=== PATIENT | male | born 1940 | race Caucasian/White ===

== ENCOUNTER 2018-11-20 23:23 | Inpatient (IN) | payer MEDICARE, OTHER ==
[~2018-11-20] VITALS: Ht 182.9 cm; Wt 84.1 kg
[2018-11-20] MEDS ORDERED: ASPIRIN325 MG PO (23:31)
[2018-11-20] MEDS ORDERED: MAXIPIME 1 GM/D51 G1 IV (23:31)
[2018-11-20] MEDS ORDERED: LEVEMIR IN100 UNITS/ SC (23:32)
[2018-11-20] MEDS ORDERED: FUROSEMIDE20 MG PO (23:32)
[2018-11-20] MEDS ORDERED: COLACE100 MG PO (23:32)
[2018-11-20] MEDS ORDERED: POLY-VI-SOL W/I50 ML (23:32)
[2018-11-20] MEDS ORDERED: ZOCOR40 MG PO (23:33)
[2018-11-20] MEDS ORDERED: NIFEDIPINE ER60 MG PO (23:33)
--- NOTE | 2018-11-20 23:33 | NUR ---
PT HAS A PICC LINE INPLACE TO RIGHT UPPER ARM, AND INDWELLING PORTILLO INPLACED DRAINING CLEAR YELLOW URINE. PT HAS D5W WITH 100 MEQ OF SODIUM BICARB INFUSING TO LEFT ARM
[2018-11-20] MEDS ORDERED: ZYVOX PREMIX600 MG IV (23:34)
[2018-11-20] MEDS ORDERED: LOPRESSOR25 MG PO (23:34)
[2018-11-20] MEDS ORDERED: SODIUM CL 0.91000 ML IV (23:35)
[2018-11-20] MEDS ORDERED: GEODON20 MG PO (23:35)
[2018-11-20 23:59] VITALS: BP 187/87
[2018-11-21] VITALS (25 sets, daily range): BP systolic 122–187; BP diastolic 76–109; BMI 29.9; BMI 29.8
[2018-11-21 00:14] LABS: BASOPHILS 0.8 % (0-2); EOSINOPHILS 1.8 % (0-7); HEMATOCRIT 32.6 % (42.0-54.0); IMMATURE GRANULOCYTES 0.4 % (0-5); LYMPHOCYTES 5.8 % (15-50); MCH 27.4 pg (26.0-34.0); MCHC 33.7 g/dL (31.0-37.0); MCV 81.3 fL (80.0-100.0); MEAN PLATELET VOLUME 10.1 fL (7.4-10.4); NEUTROPHILS 80.2 % (40-80); PLATELET COUNT 317 10x3/uL (130-400); RBC 4.01 10x6/uL (4.20-6.10); RDW 13.2 % (11.5-14.5)
[2018-11-21 00:23] LABS: ALBUMIN 2.4 g/dL (3.4-5.0); ANION GAP 26.7 mmol/L (8-16); BILIRUBIN - TOTAL 0.33 mg/dL (0.2-1.3); CALCIUM 8.4 mg/dL (8.5-10.1); CARBON DIOXIDE 12.5 mmol/L (21.0-32.0); CREATININE - SERUM 7.7 mg/dL (0.6-1.3); POTASSIUM - SERUM 5.2 mmol/L (3.5-5.1); PROTEIN - SERUM 7.5 g/dL (6.4-8.2)
[2018-11-21 00:29] LABS: C-REACTIVE PROTEIN 6.3 mg/dL (0.0-0.9); MAGNESIUM - SERUM 1.8 mg/dL (1.8-2.4)
--- NOTE | 2018-11-21 03:20 | NUR ---
PT ARRIVES TO UNIT FROM ER VIA STRETCHER WITH ER NURSE. PT TRANSFERRED TO ICU BED WITH ASSIST OF 4 NURSES AT 0145. ASSESSMENT COMPLETED, HX RECEIVED FROM DAUGHTER. PT NOTED WITH RASH TO BACK AND LEGS. GROIN AND BUTTOCKS REDDENED. PORTILLO PATENT WITH YELLOW URINE. PT LETHARGIC. PT FIDGETS FREQUENTLY WITH LESSENING OF FREQUENCY SINCE ARRIVING TO UNIT. PICC TO RIGHT UPPER ARM. LEFT FOREARM IV. HR DOWN FROM 117 UPON ARRIVAL TO 88 AT THIS TIME. BLOOD PRESSURE CUFF TO LEFT UPPER ARM WITH B/P 170'S / 100-108 CUFF MOVED TO RIGHT LOWER LEG WITH 172/80, NOTED AT THIS TIME. PT ARRIVED ON ROOM AIR AT 0300 SPO2 BEGAN DROPPING WITH N/C AT 2LPM AND SPO2 95%. WILL CONTINUE TO OBSERVE
--- NOTE | 2018-11-21 03:57 | NUR ---
CALLED ER TO CHECK WITH STAFF ABOUT CONTACTING PHYSICIAN CONSULTS. DR. THOMPSON HAS BEEN CONTACTED ABOUT CONSULT FROM ER PHYSICIAN. ER PHYSICIAN STATED TO WAIT TILL AM TO CALL OTHER CONSULTS FOR PATIENT.
--- NOTE | 2018-11-21 04:58 | NUR ---
PATIENT RESTLESS MOVING ABOUT IN BED. PATIENT DOES NOT FOLLOW ANY COMMANDS AND DOES NOT OPEN EYES. RUBBING FACE AND REMOVING O2 CANNULA ALONG WITH SPO2 MONITOR.
--- NOTE | 2018-11-21 07:00 | NUR ---
REPORT RECEIVED. ASSESSMENT COMPMLETE PER FLOW SHEET. REFER FOR FIDNINGS. DR MOCTEZUMA AT BEDSIDE GIVEN UPDATE NEW ORDERS RECIEVED. WILL ADM. VSS WILL CONTINUE TO MONITOR
--- NOTE | 2018-11-21 07:56 | NUR ---
DR RODRIGUEZ AT BEDSIDE GIVEN UDPATE.
--- NOTE | 2018-11-21 08:28 | NUR ---
FAMILY AT BEDSIDE. GIVEN UDPATE.
--- NOTE | 2018-11-21 09:19 | NUR ---
PT BACK FROM CT AT THIS TIME.
--- NOTE | 2018-11-21 09:40 | NUR ---
DIONY LEAL APN AT BEDSIDE. GIVENUDPATE. DR THIBODEAUX AT BEDSIDE. GIVEN UPDATE REGUARDING CONSULT. NO NEW CHANGES
[2018-11-21 10:33] LABS: CREATINE KINASE 59 UL (21-232); URIC ACID 9.5 mg/dL (2.6-7.2)
[2018-11-21 10:35] LABS: TROPONIN-I < 0.017 ng/mL (0.000-0.060)
[2018-11-21 13:39] LABS: APPEARANCE CLEAR (CLEAR); COLOR STRAW (YELLOW); NITRITE NEGATIVE (NEGATIVE); PROTEIN TRACE mg/dL (NEGATIVE); SPECIFIC GRAVITY 1.015 (1.005-1.020)
[2018-11-21 13:40] LABS: BILIRUBIN NEGATIVE (NEGATIVE); GLUCOSE 250 mg/dL (NEGATIVE); KETONE NEGATIVE (NEGATIVE); RED CELLS - URINE 0-5 /hpf (0-5); UROBILINOGEN NORMAL (NORMAL); WHITE CELLS - URINE NSEEN /hpf (0-5)
--- NOTE | 2018-11-21 15:11 | NUR ---
REASSESSMENT COMPLETE PER FLOW SHEET. VSS. NO NEW CHANGES WILL CONTNIUE TO MONITOR
--- NOTE | 2018-11-21 17:10 | NUR ---
FAMILY AT BEDSIDE. GIVEN UDPATE.
--- NOTE | 2018-11-21 17:14 | MORECARE ---
CASE MANAGEMENT DISCHARGE SUMMARY PATIENT: AFSHIN NORIEGA UNIT: [id number] ADM DATE: 11/21/18 AGE: 78 : 39 SEX: M ROOM/BED: D.2303 AUTHOR: VINAY WITT PHYSICIAN: REFERRING PHYSICIAN: DEEDEE RODRIGUEZ DO DATE OF SERVICE: 11/21/18 Discharge Plan Patient Name: AFSHIN NORIEGA [facility] [facility] 1940 Planned Disposition: Anticipated Discharge Date: Discharge Date: Expected LOS: Initial Reviewer: [email or web address] Initial Review Date: 11/21/2018 Generated: 11/21/18 6:14 pm Patient Name: AFSHIN NORIEGA Page 15054 at 1714 All edits/amendments must be made on the electronic document DICTATION DATE: 11/21/181713 DIRECTOR VOICE: LORENE 11/21/181713 RPT#: [id number] DC DATE: STATUS: ADM IN [facility] [address] [place] [address] END OF REPORT
--- NOTE | 2018-11-21 17:30 | MORECARE ---
CASE MANAGEMENT DISCHARGE SUMMARY PATIENT: AFSHIN HARVEY UNIT: [id number] ADM DATE: 11/21/18 AGE: 78 : 39 SEX: M ROOM/BED: D.2303 AUTHOR: VINAY WITT PHYSICIAN: REFERRING PHYSICIAN: DEEDEE RODRIGUEZ DO DATE OF SERVICE: 11/21/18 Discharge Plan Patient Name: AFSHIN HARVEY [facility] [facility] 1940 Planned Disposition: Anticipated Discharge Date: Discharge Date: Expected LOS: Initial Reviewer: [email or web address] Initial Review Date: 11/21/2018 Generated: 11/21/18 6:30 pm DCPIA - Discharge Planning Initial Assessment Updated by [email or web address]: Perla Wei on 11/21/18 5:25 pm * Is the patient Alert and Oriented? No * How many steps to enter\exit or inside your home? * PCP Dr. Solis @ [facility] * Pharmacy [facility] * Preadmission Environment Home with Family * ADLs Independent * Other Equipment Cane, Walker * List name and contact numbers for known caregivers / representatives who currently or will assist patient after discharge: Celena Harvey - - [phone], May Parks - daughter- [phone] * Verbal permission to speak to the caregivers and representatives has been obtained from the patient. Yes * Community resources currently utilized Home Health * Please name any agencies selected above. [address] for Labs * Additional services required to return to the preadmission environment? No * Can the patient safely return to the preadmission environment? Yes * Has this patient been hospitalized within the prior 30 days at any hospital? Yes Last DP export: 11/21/18 4:14 pm Patient Name: AFSHIN HARVEY Page [id number] at 1730 All edits/amendments must be made on the electronic document DICTATION DATE: 11/21/181728 EMPLOYEE BENEFITS ADMINISTRATOR: LORENE 11/21/181728 RPT#: [id number] DC DATE: STATUS: ADM IN [facility] [address] [place] [address] END OF REPORT
--- NOTE | 2018-11-21 17:46 | MORECARE ---
CASE MANAGEMENT DISCHARGE SUMMARY PATIENT: AFSHIN HARVEY UNIT: [id number] ADM DATE: 11/21/18 AGE: 78 : 39 SEX: M ROOM/BED: D.2303 AUTHOR: VINAY WITT PHYSICIAN: REFERRING PHYSICIAN: DEEDEE RODRIGUEZ DO DATE OF SERVICE: 11/21/18 Discharge Plan Patient Name: AFSHIN HARVEY Facility: [facility]:[place] : 1940 Planned Disposition: Anticipated Discharge Date: Discharge Date: Expected LOS: Initial Reviewer: [email or web address] Initial Review Date: 11/21/2018 Generated: 11/21/18 6:46 pm Comments DCP- Discharge Planning Updated by [id number]: Perla Wei on 11/21/18 4:[address] Patient Name: AFSHIN HARVEY Admission Status: ER Accout number: [id number] Admission Date: 11-21-2018 : 1940 Admission Diagnosis: Attending: DEEDEE RODRIGUEZ Current LOS: 1 Anticipated DC Date: Planned Disposition: Primary Insurance: MEDICARE A & B Discharge Planning Comments: CM met with patient's daughter (May) at bedside. Patient confused at this time. May states that patient lives at home with his spouse (Lolly) in [place]. She states that Lolly is currently sick that is why she isn't here. May states that patient has been admitted to hospital 3 times since 09/24/18. She stated patient was in Rehab facility trying to increase his strength so he could return home and then was readmitted to [facility]. Patient was then transferred here for higher level of care. May states patient did have HH services with [facility] but they was only coming out to draw labs because he was on IV antibiotics. Uncertain of disposition at this time d/t altered mental status. CM will continue to follow and assist as needed with discharge planning. Barrel Drainer: Perla Wei DCPIA - Discharge Planning Initial Assessment Updated by [email or web address]: Perla Wei on 11/21/18 5:25 pm * Is the patient Alert and Oriented? No * How many steps to enter\exit or inside your home? * PCP Dr. Solis @ [facility] in [place] * Pharmacy [facility] * Preadmission Environment Home with Family * ADLs Independent * Other Equipment Cane, Walker * List name and contact numbers for known caregivers / representatives who currently or will assist patient after discharge: Lolly Harvey - - [phone], May Parks - daughter- [phone] * Verbal permission to speak to the caregivers and representatives has been obtained from the patient. Yes * Community resources currently utilized Home Health * Please name any agencies selected above. [address] for Labs * Additional services required to return to the preadmission environment? No * Can the patient safely return to the preadmission environment? Yes * Has this patient been hospitalized within the prior 30 days at any hospital? Yes Last DP export: 11/21/18 4:30 pm Patient Name: AFSHIN HARVEY Page [phone] at 1746 All edits/amendments must be made on the electronic document DICTATION DATE: 11/21/181744 SHEETMETAL PATTERNMAKER: LORENE 11/21/181744 RPT#: [id number] DC DATE: STATUS: ADM IN [facility] [address] [place] [address] END OF REPORT
--- NOTE | 2018-11-21 19:14 | NUR ---
BEDSIDE SHIFT REPORT GIVEN BY DEPARTING RN USING SBAR. PT LAYIN IN BED WITH EYES CLOSED. CONFUSED. OPENS EYES AND FOLLOWS NURSE AROUND ROOM. NONVERBAL AT THIS TIME. FC DRAINING TO GRAVITY WITH CLR, YELLOW URINE IN DRAINAGE BAG. RT UPPER ARM PICC LINE PATENT. SEE FLOWSHEET FOR FULL DETAILS. VSS. SAFETY MEASURES IN PLACE. REPOSITIONS SELF. ORAL CARE PROVIDED. CBIR.
--- NOTE | 2018-11-21 20:04 | NUR ---
HS MEDS GIVEN. BG CHECKED AND COVER VIA SS. TOLERATED WELL. ORAL CARE PROVIDED. PT SHAKES HEAD AROUND AND BITES AT MOUTH SWAB. QUICKLY CALMS DOWN. SAFETY MEASURES IN PLACE, CBIR.
--- NOTE | 2018-11-21 22:45 | NUR ---
REASSESSMENT COMPLETE. NO CHANGES IN PT CONDITION. ORAL CARE PROVIDED.
[2018-11-22] VITALS (24 sets, daily range): BP systolic 145–213; BP diastolic 75–125; Ht 182.9 cm; Wt 84.1 kg
--- NOTE | 2018-11-22 02:28 | NUR ---
ORAL CARE PROVIDED. REPOSITIONS SELF.
--- NOTE | 2018-11-22 03:30 | NUR ---
REASSESSMENT COMPLETE. PT LAYING IN BED WITH EYES OPEN. CONSISTENTLY MOVES TO LEFT SIDE OF THE BED. REPOSITIONS SELF. VSS. SAFETY MEASURES IN PLACE. CBIR.
[2018-11-22 04:38] LABS: BASOPHILS 0.8 % (0-2); EOSINOPHILS 1.3 % (0-7); HEMATOCRIT 32.9 % (42.0-54.0); HEMOGLOBIN 11.1 g/dL (13.5-17.5); IMMATURE GRANULOCYTES 0.7 % (0-5); LYMPHOCYTES 6.1 % (15-50); MCH 27.1 pg (26.0-34.0); MCHC 33.7 g/dL (31.0-37.0); MCV 80.2 fL (80.0-100.0); MEAN PLATELET VOLUME 10.4 fL (7.4-10.4); MONOCYTES 13.9 % (2-11); NEUTROPHILS 77.2 % (40-80); PLATELET COUNT 319 10x3/uL (130-400); RDW 13.2 % (11.5-14.5); WBC 11.3 10x3/uL (4.8-10.8)
[2018-11-22 05:08] LABS: BILIRUBIN - DIRECT 0.09 mg/dL (0.00-0.30); BILIRUBIN - INDIRECT 0.31 mg/dL (0.00-1.00); BILIRUBIN - TOTAL 0.4 mg/dL (0.2-1.3); CALCIUM 8.4 mg/dL (8.5-10.1); CREATININE - SERUM 7.7 mg/dL (0.6-1.3); PHOSPHOROUS 6.2 mg/dL (2.5-4.9); PROTEIN - SERUM 7.5 g/dL (6.4-8.2)
[2018-11-22 05:14] LABS: ALBUMIN 2.4 g/dL (3.4-5.0)
[2018-11-22 05:23] LABS: ANION GAP 20.4 mmol/L (8-16); CARBON DIOXIDE 24.3 mmol/L (21.0-32.0); POTASSIUM - SERUM 3.7 mmol/L (3.5-5.1)
--- NOTE | 2018-11-22 07:15 | NUR ---
REPORT RECEIVED. ASSESSMENT COMPLETE PER FLOW SHEET. VSS. DR MOCTEZUMA AT BEDSIDE NEW ORDERS RECIEVED. WILL ADM. DR MOCTEZUMA SPOKE WITH FAMILY AT BEDSIDE AT GREAT LENGTH. WILL CONTINUE TO MONITOR
--- NOTE | 2018-11-22 11:15 | NUR ---
REASSESSMENT COMPLETE PER FLOW SHEET. VSS. NO NEW CHANGES. PT RESTING COMFORTABLY WILL CONTINUE OT MONITOR
[2018-11-22 12:31] LABS: ANION GAP 24.8 mmol/L (8-16); CALCIUM 8.2 mg/dL (8.5-10.1); CARBON DIOXIDE 21.3 mmol/L (21.0-32.0); CREATININE - SERUM 7.8 mg/dL (0.6-1.3); POTASSIUM - SERUM 4.1 mmol/L (3.5-5.1)
--- NOTE | 2018-11-22 13:00 | NUR ---
FAMILY AT BEDSIDE. GIVEN UPDATE NO NEW CHANGES WILL CONTINUE TO MONITOR
--- NOTE | 2018-11-22 14:10 | NUR ---
MRI AT BEDSIDE. UNABLE TO OBTAIN WITH PT UNABLE TO FOLLOW COMMANDS DR THIBODEAUX AND DR MOCTEZUMA GIVEN UDPATE.
--- NOTE | 2018-11-22 15:00 | NUR ---
REASSESSMENT COMPLETE PER FLOW SHEET. VSS. NO NEW CHANGES IWLL CONTINUE TO MONITO R
--- NOTE | 2018-11-22 16:10 | NUR ---
R IJ TRIALYSIS CATH ADM AT BEDSIDE BY SMILEY CORNEJO .
--- NOTE | 2018-11-22 17:10 | EC ---
PATIENT:AFSHIN NORIEGA DATE OF SERVICE: 11/21/18 SEX: M MEDICAL RECORD: [id number] DATE OF : [birth year] LOCATION:[facility] [address] AGE OF PATIENT: 78 ADMISSION DATE: 11/21/18 REFERRING PHYSICIAN: INTERPRETING PHYSICIAN: KATELYNN VILLANUEVA MD ECHOCARDIOGRAM REPORT ECHO CHARGES 4 ECHO COMPLETE Date: 11/21/18 CLINICAL DIAGNOSIS: ENDOCARDITIS ECHOCARDIOGRAPHIC MEASUREMENTS (adult normal given) AC root (d.<3.7cm) 3.0 cm LV Septum d (<1.2 cm> 1.0 cm Valve Excursion 1.9 cm LV Septum (systole) 1.2 cm Left Atria (s.<4.0cm> 3.5 cm LVPW d(<1.2cm) 1.2 cm RV (d.<2.3cm) 2.1 cm LVPW (sytole) 1.4 cm LV diastole(<5.6CM) 5.7 cm MV E-F(>70mm/sec) cm LV systole 4.3 cm LVOT Diameter 1.9 cm MV exc.(>10mm) cm Est.ejection fraction (50-75%) % DOPPLER: LVIT cm/sec A 103 cm/sec E 67 cm/sec LA cm/sec RVSP 48.1 mmHg LVOT 110 cm/sec AOP1/2T m/s Asc. Ao 121 cm/sec RVOT 75 cm/sec RA cm/sec PA 98 cm/sec AV Gradient Peak 5.9 mmHg AV Mean 3.4 mmHg AV Area 2.5 cm MV Gradient Peak 8.7 mmHg MV Mean 3.1 mmHg MV Area cm COMMENTS: Mortgage Consultant: Yary [facility] Ceramic Products Sales Engineer: 1 Dr. Villanueva TAPE# PACS Pericardial Effusion N DATE OF SERVICE: 11/21/2018 FINDINGS: 1. Left ventricular chamber size is within normal limits. Left ventricular systolic function is normal. Overall ejection fraction estimated at 50%. 2. Left atrium, right atrium, and right ventricular chamber sizes are within normal limits. 3. Valvular structures have normal structure and motion. No evidence of vegetative endocarditis. 4. Doppler interrogation reveals moderate mitral regurgitation, moderate ECHOCARDIOGRAM REPORT [id number] AFSHIN NORIEGA tricuspid regurgitation, no other valvular insufficiency or stenosis. Pulmonary systolic pressure is estimated 48 mmHg. 5. No evidence of pericardial effusion or left ventricular thrombus. TRANSINT:[id number] Voice Confirmation ID: [id number] DOCUMENT ID: [id number] KATELYNN VILLANUEVA MD at 1710 CC: [id number] DICTATION DATE: 11/21/18 1230 CERTIFIED SURGICAL FIRST ASSISTANT: 11/21/18 1327 ADM IN [facility] [address] [place] [address]
--- NOTE | 2018-11-22 17:40 | NUR ---
NGT TUBE ATTEMPT X3 WITH NO SUCCESS. DR THIBODEAUX GIVEN UDPATE. T ORDER TO PAGE DR MOCTEZUMA FOR FLUIDS FOR NA OF 149
--- NOTE | 2018-11-22 18:30 | NUR ---
DR MOCTEZUMA PAGED GIVEN UPDATE NEW ORDERS RECIEVED
--- NOTE | 2018-11-22 19:04 | NUR ---
BEDSIDE SHIFT REPORT GIVEN BY DEPARTING RN. PT LAYING IN BED RESTLESS AND REPOSITIONING SELF FREQUENTLY. OPENS EYES WITH TACTILE STIMULI. ASSESSMENT COMPLETE. REPOSITIONED IN BED. SAFETY MEASURES IN PLACE. BED ALARM ON. CBIR.
--- NOTE | 2018-11-22 20:33 | NUR ---
HS MEDS GIVEN. PRN METOPROLOL GIVEN. SEE MAR FOR DETAILS. TOLERATED WELL. REPOSITIONED IN BED. ORAL CARE GIVEN.
--- NOTE | 2018-11-22 23:11 | NUR ---
REASSESSMENT COMPLETE. NO CHANGES NOTED. REPOSITIONED PT TO PROPER ALIGNMENT IN BED. ORAL CARE GIVEN. SAFETY MEASURES IN PLACE. CBIR. BED ALARM REMAINS ON.
[2018-11-23] VITALS (23 sets, daily range): BP systolic 119–193; BP diastolic 67–113
[2018-11-23 04:34] LABS: BASOPHILS 0.6 % (0-2); EOSINOPHILS 0.8 % (0-7); HEMATOCRIT 34.7 % (42.0-54.0); HEMOGLOBIN 11.6 g/dL (13.5-17.5); IMMATURE GRANULOCYTES 0.5 % (0-5); LYMPHOCYTES 6.5 % (15-50); MCH 27.4 pg (26.0-34.0); MCHC 33.4 g/dL (31.0-37.0); MONOCYTES 12.6 % (2-11); PLATELET COUNT 335 10x3/uL (130-400); RBC 4.23 10x6/uL (4.20-6.10); RDW 13.3 % (11.5-14.5); WBC 12.8 10x3/uL (4.8-10.8)
[2018-11-23 04:51] LABS: ANION GAP 20.7 mmol/L (8-16); CALCIUM 8.4 mg/dL (8.5-10.1); CARBON DIOXIDE 25.2 mmol/L (21.0-32.0); CREATININE - SERUM 7.4 mg/dL (0.6-1.3); PHOSPHOROUS 6.3 mg/dL (2.5-4.9); POTASSIUM - SERUM 3.9 mmol/L (3.5-5.1)
--- NOTE | 2018-11-23 09:00 | NUR ---
SPOUSE AT BS---PT CONTINUE WITH PERIODS OF OBTUNDED,FOLLOWS COMMANDS & ANXIETY
--- NOTE | 2018-11-23 09:13 | NUR ---
NUTRITION F/U PT SLEEPING WITH FAMILY AT BEDSIDE. PROCALAMINE AT 25 CC/HR. NOTE POSSIBLE TX. WILL CONTINUE TO MONITOR PT PROGRESS, ASSIST WITH NUTRITION SUPPORT IF NEEDED. RD FOLLOWING
--- NOTE | 2018-11-23 12:00 | NUR ---
CONTINUE LEGARGIC AT TIMES WITH PERIODS OF FOLLOWING VERBAL COMMANDS
--- NOTE | 2018-11-23 13:00 | NUR ---
SPOUSE AT BS---RESTING QUIETLY CONTINUE
--- NOTE | 2018-11-23 17:00 | NUR ---
LOOKING AROUND UNIT ---SPOUSE AT BS--SEE GRAPHIC
--- NOTE | 2018-11-23 19:15 | NUR ---
REC'D TO CARE, CREW CAR DRIVER PER FLOWSHEET. PT DID SAY "HOW ARE YOU", MEHRDAD, NO SIGN OF DISTRESS. DOES NOT ANSWER QUESTIONS, WILL SQUEEZE HANDS TO COMMAND WITH MUCH ENCOURAGEMENT. VSS. IVF INFUSING TO R IJ TRIALYSIS, DSG C/D/I. HD NURSE AT BEDSIDE PREPPING FOR HD. ALARMS ON AND C/L IN REACH. PT CLOSE TO NURSE STATION.
--- NOTE | 2018-11-23 20:00 | NUR ---
HD IN PROCESS, AT BS. UPDATE GIVEN AND QUESTIONS ANSWERED. VSS.
--- NOTE | 2018-11-23 21:45 | NUR ---
HD COMPLETE, 2L OFF. VSS.
--- NOTE | 2018-11-23 23:00 | NUR ---
REASSESSMENT PER FLOWSHEET, NO ACUTE CHANGES. NO SIGN OF DISTRESS. REFUSES ORAL CARE, MINIMAL SPEECH. MEHRDAD. VSS.
[2018-11-24] VITALS (24 sets, daily range): BP systolic 84–184; BP diastolic 54–96
--- NOTE | 2018-11-24 01:00 | NUR ---
PT REPOSITIONED SELF, RESTING QUIETLY ON R SIDE. ALARMS ON.
--- NOTE | 2018-11-24 03:10 | NUR ---
REASSESSMENT PER FLOWSHEET, NO ACUTE CHANGES. RESTING QUIETLY. STILL NON-VERBAL, REFUSES ORAL CARE. BACK TO REST EASILY.
--- NOTE | 2018-11-24 05:00 | NUR ---
PT AWAKENS EASILY, ANSWERING QUESTIONS, ORIENTED TO NAME ONLY. REORIENTED TO DATE/TIME/SITUATION BY NURSE. BACK TO REST EASILY.
--- NOTE | 2018-11-24 07:00 | NUR ---
REPORT RECEIVED INITIAL ASSESSMENT COMPLETE. PT AWAKE ALERT AND VERBAL SPEECH GARBLED DIFFICULT TO UNDERSTAND AT TIMES. ORIENTED TO SELF ONLY. INFORMED PT OF TIME PLACE AND SITUATION. THICK WHITE COATING COVERING TONGUE WILL REQUEST NYSTATIN FROM PHYSICIANS AT ROUNDS. FOLLOWS COMMANDS VERY STRONG REGIONAL MARKETING DIRECTOR BILATERALLY. LOWER EXTREMITIES EQUAL BUT WEAK. RESP EVEN NONLABORED ROOM AIR SATS 97-99%. HARBOR PATROL POLICE ON WITH ALARMS ON AND AUDIBLE READING SR WITH NO ECTOPY NOTED. CVP ZEROED AND CALIBRATED WITH READING OF 4. SEE ASSESSMENT AND FLOWSHEETS. BED LOW POSITION SIDE RAILS UP TIMES 3 FOR SAFETY AND BED MOBILITY. CALL LIGHT IN REACH.
[2018-11-24 07:58] LABS: BASOPHILS 1.1 % (0-2); EOSINOPHILS 2.6 % (0-7); HEMATOCRIT 32.3 % (42.0-54.0); HEMOGLOBIN 10.9 g/dL (13.5-17.5); IMMATURE GRANULOCYTES 0.2 % (0-5); LYMPHOCYTES 9.3 % (15-50); MCH 27.6 pg (26.0-34.0); MCHC 33.7 g/dL (31.0-37.0); MCV 81.8 fL (80.0-100.0); MEAN PLATELET VOLUME 9.6 fL (7.4-10.4); MONOCYTES 11.7 % (2-11); NEUTROPHILS 75.1 % (40-80); PLATELET COUNT 227 10x3/uL (130-400); RBC 3.95 10x6/uL (4.20-6.10); RDW 13.1 % (11.5-14.5)
--- NOTE | 2018-11-24 08:00 | NUR ---
DAVIN CORNEJO WITH RENAL ROUNDING. RN ASKED ABOUT GETTING SOMETHING FOR WHITE COATING NOTED ORALLY. SHE QUESTIONED IF PT HAS HAD BM, LOOKED BACK UNKNOWN CHARTED SINCE ADMISSION, SHE ORDERED DULCOLAX FOR CONSTIPATION AND NYSTATIN SWISH AND SWALLOW FOR THRUSH IN MOUTH
[2018-11-24 08:11] LABS: ANION GAP 16.8 mmol/L (8-16); CALCIUM 8.3 mg/dL (8.5-10.1); CREATININE - SERUM 5.6 mg/dL (0.6-1.3); PHOSPHOROUS 5.4 mg/dL (2.5-4.9); POTASSIUM - SERUM 3.8 mmol/L (3.5-5.1)
--- NOTE | 2018-11-24 08:40 | NUR ---
DR MORELIA MONTEIRO SPEAKING WITH AND PT AT BEDSIDE
[2018-11-24 09:13] LABS: FOLATE (FOLIC ACID) - SERUM >20.0 ng/mL (>3.0)
--- NOTE | 2018-11-24 10:18 | NUR ---
DR MENDZOA ROUNDING SPEAKING WITH DR THIBODEAUX STILL ON UNIT ROUNDING ON MULTIPLE PATIENTS. ALSO AT BEDSIDE UPDATED BY BOTH PHYSICIANS
--- NOTE | 2018-11-24 15:15 | NUR ---
SPOKE WITH NON PROFIT DIRECTOR WITH [facility]ER [facility] ABOUT PTS QUESTIONS OF NEUROLOGY CONSULT AND THAT THEY ARE 2 HOURS AWAY FROM THEIR HOME. SHE IS UNABLE TO DRIVE AND JUST WANTS CLOSER TO HOME IF POSSIBLE. PETER STATED SHE DID NOT KNOW THAT MAYBE DR THIBODEAUX WAS HANDLING THE CONSULTS.
--- NOTE | 2018-11-24 15:45 | NUR ---
PT HAD LARGE LIQUID BROWN BM COMPLETE BED BATH GIVEN AND COMPLETE LINEN CHANGE
--- NOTE | 2018-11-24 15:55 | NUR ---
MRI CALLED READY TO COME GET PATIENT FOR ORDERED MRI OF BRAIN
--- NOTE | 2018-11-24 16:00 | NUR ---
DR PEREZ ROUNDING TALKING TO FAMILY. DR THIBODEAUX STATED PT COULD TRANSFER IF OK WITH OTHER PHYSICIANS DR PEREZ SAID HES DIALIZING TODAY SO AFTER IF STABLE. OK TO TRANSFER TO FLOOR PT IS TO HAVE SECOND DIALYSIS TODAY SO IF STABLE POST DIALYSIS OK TO TRANSFER
--- NOTE | 2018-11-24 17:15 | NUR ---
PT TO MRI VIA WHEELCHAIR.
--- NOTE | 2018-11-24 17:50 | NUR ---
BACK FROM MRI. PT HAD LARGE BM PARTIAL BED BATH AND LINEN CHANGE
--- NOTE | 2018-11-24 18:00 | NUR ---
DR MENDOZA ON UNIT ASKED IF HE WAS OK WITH PT BEING TRANSFERRED TO FLOOR POST DIALYSIS IF STABLE. HE STATED YES. SO PT CAN GO TO FLOOR IF STABLE POST DIALYSIS
--- NOTE | 2018-11-24 21:45 | NUR ---
SHIFT ASSESSMENT PREVIOUSLY COMPLETED AND CHARTED, PER NURSING FLOWSHEET. FAMILY CURRENTLY AT BEDSIDE, UPDATE GIVEN, QUESTIONS ANSWERED. C/L IN REACH
--- NOTE | 2018-11-24 23:00 | NUR ---
PATIENT ATTEMPTING TO GET OUT OF BED, PATIENT IS CONFUSED TO TIME, PLACE AND SITUATION, BUT CAN TELL ME HIS NAME. PATIENT BACK TO BED, ALL MONITORING EQUIPMENT REPOSITIONED, BED ALARM ACTIVE. CURTAIN AND DOOR TO THIS PATIENT'S ROOM OPEN FOR CONSTANT DIRECT VISUALIZATION OF THIS PATIENT FREQUENTLY
[2018-11-25] VITALS (19 sets, daily range): BP systolic 95–136; BP diastolic 57–76
--- NOTE | 2018-11-25 01:00 | NUR ---
COMPLETE LINEN CHANGE FOR THIS PATIENT FOR INCONTINENT EPISODE OF STOOL. METICULOUS JOSE CARE PROVIDED, PORTILLO CARE PROVIDED, STOOL CLEANED FROM HANDS AND CALMOSEPTINE APPLIED TO BUTTOCKS AND JOSE AREA, CONTINUE POC
--- NOTE | 2018-11-25 03:00 | NUR ---
PATIENT ATTEMPTING TO GET OUT OF BED, PATIENT BACK TO BED, ICU MONITORING EQUIPMENT REPOSITIONED AND BED ALARM RESET AND ACTIVE
--- NOTE | 2018-11-25 05:00 | NUR ---
PARTIAL LINEN CHANGE FOR INCONTINENT EPISODE OF STOOL, JOSE CARE PROVIDED, CALMOSEPTINE APPLIED, DOOR/CURTAIN OPEN FOR DIRECT VISUALIZATION OF THIS PATIENT, REPOSITIONED AND BED ALARM IS ACTIVE
[2018-11-25 06:49] LABS: BASOPHILS 0.7 % (0-2); EOSINOPHILS 2.5 % (0-7); HEMATOCRIT 33.9 % (42.0-54.0); HEMOGLOBIN 11.2 g/dL (13.5-17.5); IMMATURE GRANULOCYTES 0.3 % (0-5); LYMPHOCYTES 7.3 % (15-50); MCH 27.1 pg (26.0-34.0); MCV 82.1 fL (80.0-100.0); MEAN PLATELET VOLUME 10.2 fL (7.4-10.4); MONOCYTES 11.5 % (2-11); NEUTROPHILS 77.7 % (40-80); PLATELET COUNT 211 10x3/uL (130-400); RBC 4.13 10x6/uL (4.20-6.10); RDW 13.1 % (11.5-14.5); WBC 9.8 10x3/uL (4.8-10.8)
[2018-11-25 06:53] LABS: ANION GAP 18.1 mmol/L (8-16); CALCIUM 8.4 mg/dL (8.5-10.1); CARBON DIOXIDE 23.9 mmol/L (21.0-32.0); CREATININE - SERUM 4.7 mg/dL (0.6-1.3); PHOSPHOROUS 4.8 mg/dL (2.5-4.9)
--- NOTE | 2018-11-25 07:00 | NUR ---
REPORT RECEIVED.INITIAL SHIFT ASSESSMENT COMPLETED. PT ORIENTED TO PERSON TIME BUT NOT TO PLACE OR SITUATION. HE STATES IT IS 2020 AND THAT [place]UM[place] IS PRESIDENT. FOLLOWS COMMANDS EQUAL AND STRONG VALVING MACHINE OPERATOR WITH UPPER EXTREMITIES. ABLE TO LIFT BLE OFF BED BUT SLIGHT WEAKNESS NOTED. RESP EVEN AND NONLABORED ON ROOM AIR SATS 97%. AMMONIA REFRIGERATION WORKER READING SR WITHOUT ECTOPY ALARMS ON AND AUDIBLE. BLOOD PRESSURE STABLE. SKIN WARM AND DRY INTACT, RASH FROM PREVIOUS ANTIBIOTIC (VANC)ALLERGY TO BACK AND BRUISING NOTED TO LEFT OUTER THIGH AND RIGHT LEG FROM A REPORTED FALL PRIOR TO THIS ADMISSION.
--- NOTE | 2018-11-25 08:20 | NUR ---
PTS DAUGHTER AT BEDSIDE UPDATE GIVEN AND DAVIN ALONSON WITH RENAL HERE ALSO SPEAKING WITH PT AND EMMY
--- NOTE | 2018-11-25 10:30 | NUR ---
DR MENDOZA HERE FOR ROUNDS
--- NOTE | 2018-11-25 10:40 | NUR ---
DR MENDOZA STATES PT TO STAY IN UNIT AFTER CONFUSION LAST NIGHT. PER . MAKER UP FOLDING REPORT HE WAS CONFUSED MOST OF NIGHT AND AT ONE POINT ATTEMPTED TO GET OUT OF BED AND REACHES FOR DIALYSIS ACCESS. PT IS ABLE TO STATE FOR DR MENDOZA HIS NAME, , THE YEAR AND THAT PRESIDENT IS TRUMP BUT NOT ORIENTED TO PLACE OR SITUATION HE STATES HE IS IN [place] AND HE SAYS HES NOT SURE OF WHATS GOING ON.
--- NOTE | 2018-11-25 11:00 | NUR ---
REASSESSMENT COMPLETED SEE ASSESSMENT AND FLOWSHEETS. VSS NSR WITHOUT ECTOPY
--- NOTE | 2018-11-25 11:45 | NUR ---
DR THIBODEAUX HERE FOR ROUNDS, STATES HE IS SIGNING OFF PTS O2 SAT 98% ON ROOM AIR. NO SOB OR DISCOMFORT NOTED
--- NOTE | 2018-11-25 11:45 | NUR ---
DR PEREZ ROUNDING ON PATIENT
--- NOTE | 2018-11-25 12:00 | NUR ---
PTS FAMILY HERE FOR VISITATION UPDATE GIVEN.
--- NOTE | 2018-11-25 16:00 | NUR ---
PTS SON HERE FOR VISITATION PT DENIES PAIN OR DISCOMFORT. VSS
--- NOTE | 2018-11-25 19:15 | NUR ---
Received patient resting in bed with eyes closed, assessment completed per flowsheet. Patient disoriented to time/situation, follows instructions. S1/S2 noted NSR on telemetry, rythmic and regular. Breathing is shallow/unlabored on room air with O2 sat 96%, lung sounds clear throughout. All pulses palpable with cap refill < 3 sec, skin warm/dry. Repositioned for comfort, see flowsheet for details. All VSS and will continue to monitor.
--- NOTE | 2018-11-25 21:00 | NUR ---
Patient resting in bed with eyes open and family at bedside, discussed discharge plans/medications with all questions answered to satisfaction. No further needs at this time, all VSS and will continue to monitor.
--- NOTE | 2018-11-25 23:15 | NUR ---
Reassessment completed per flowsheet, no changes from previous assessment. Patient disoriented to time/situation, observed attempting to get out of bed. Attempted reorientation with limited success, educated on need to remain in bed. Denies pain or other needs at this time, see flowsheet for details. All VSS and will continue to monitor.
[2018-11-26] VITALS (13 sets, daily range): BP systolic 116–164; BP diastolic 61–97
--- NOTE | 2018-11-26 01:00 | NUR ---
Patient resting in bed with eyes open watching TV, repositioned in bed. Denies pain or other needs at this time, all VSS and will continue to monitor.
--- NOTE | 2018-11-26 03:10 | NUR ---
Reassessment completed per flowsheet, no changes from previous assessment. Patient disoriented to time/situation, observed trying to get out of bed. Repositioned and reoriented with limited success, patient follows instructions. All pulses palpable with cap refill < 3 sec, skin warm/dry. Denies pain or other needs at this time, see flowsheet for details. All VSS and will continue to monitor.
[2018-11-26 04:45] LABS: BASOPHILS 0.6 % (0-2); EOSINOPHILS 2.6 % (0-7); HEMATOCRIT 32.3 % (42.0-54.0); HEMOGLOBIN 10.9 g/dL (13.5-17.5); IMMATURE GRANULOCYTES 0.3 % (0-5); LYMPHOCYTES 8.5 % (15-50); MCH 27.2 pg (26.0-34.0); MCHC 33.7 g/dL (31.0-37.0); MCV 80.5 fL (80.0-100.0); MEAN PLATELET VOLUME 10.1 fL (7.4-10.4); MONOCYTES 9.3 % (2-11); NEUTROPHILS 78.7 % (40-80); PLATELET COUNT 180 10x3/uL (130-400); RBC 4.01 10x6/uL (4.20-6.10); RDW 12.9 % (11.5-14.5); WBC 9.6 10x3/uL (4.8-10.8)
[2018-11-26 05:15] LABS: ANION GAP 20.5 mmol/L (8-16); CALCIUM 8.1 mg/dL (8.5-10.1); CARBON DIOXIDE 23.8 mmol/L (21.0-32.0); POTASSIUM - SERUM 4.3 mmol/L (3.5-5.1)
--- NOTE | 2018-11-26 08:58 | NUR ---
PT SAT UP 45 DEG IN BED AND ASSISTED WITH CL DIET. NO S&S OF ASPIRATION. PT TOOK 2 OR 3 SIPS OF COFFEE AND DENIED ANY FURTHER NUTRITION. SON AT BS.
--- NOTE | 2018-11-26 09:56 | NUR ---
ST HERE THIS AM. NEW DIET ORDERS RECEIVED.
--- NOTE | 2018-11-26 10:06 | NUR ---
Nutrition follow-up: Diet: clear liquids; pt tolerating at this time Out to floor today per physicians ProcJose Antonio PPN @ 25 ml/hr New dialysis pt Labs reviewed Wt: 167# +BM past Dulcolax Will monitor pts diet advancement and tolerance to renal diet. RDN following.
--- NOTE | 2018-11-26 11:03 | NUR ---
HD STARTED. VSS.
--- NOTE | 2018-11-26 14:42 | NUR ---
OBTAINE JOE CONCENT FROM PT AND SON. PT VERBILIZED THAT IT IS OK AND SON SIGNED. FAXED TO [facility] IN [place]. HD COMPLETE. VSS.
--- NOTE | 2018-11-26 17:14 | NUR ---
RECEIVED PT FROM ICU VIA BED. PT IS AA BUT CONFUSED TO SITUATION, PLACE, AND TIME. PORTILLO IN PLACE AND DRAINING URINE. PROCALAMINE INFUSING @50ML/HR AND ABX CURRENTLY INFUSING VIA R.IJ TRIALYSIS. SON AT BEDSIDE. WILL CTM.
--- NOTE | 2018-11-26 19:00 | NUR ---
RESTING ON RIGHT SIDE WITH BLANKET OVER HIS HEAD. AWAKENS EASILY. DENIES PAIN OR ANY NEEDS. RT IJ TRIALYSIS WITH PROCALAMINE INFUSING AT 50ML/HR. PORTILLO INTACT/PATENT DRAINING CLEAR YELLOW URINE. HIS SON IS PRESENT IN ROOM.
--- NOTE | 2018-11-26 21:10 | NUR ---
ADMIN SCHED MEDS. SOME DIFFICULTY WITH SWALLOWING PO MED, TRYING TO SPIT IT OUT. FINALLY SWALLOWED IT AFTER ALOT OF CONVINCING THAT IT WAS NOT CHEWING TOBACCO.
--- NOTE | 2018-11-27 00:30 | NUR ---
SITTING ON SIDE OF BED. HAD BM ACCIDENT IN THE BED. CLEANED HIM UP, CHANGED GOWN AND BEDDING.
[2018-11-27 05:31] LABS: BASOPHILS 0.6 % (0-2); EOSINOPHILS 2.6 % (0-7); HEMATOCRIT 29.6 % (42.0-54.0); HEMOGLOBIN 9.9 g/dL (13.5-17.5); IMMATURE GRANULOCYTES 0.3 % (0-5); LYMPHOCYTES 9.2 % (15-50); MCH 27.1 pg (26.0-34.0); MCHC 33.4 g/dL (31.0-37.0); MCV 81.1 fL (80.0-100.0); MEAN PLATELET VOLUME 10.4 fL (7.4-10.4); MONOCYTES 11.2 % (2-11); NEUTROPHILS 76.1 % (40-80); PLATELET COUNT 157 10x3/uL (130-400); RBC 3.65 10x6/uL (4.20-6.10); WBC 8.8 10x3/uL (4.8-10.8)
[2018-11-27 05:40] LABS: CALCIUM 7.7 mg/dL (8.5-10.1); CARBON DIOXIDE 24.3 mmol/L (21.0-32.0); CREATININE - SERUM 4.6 mg/dL (0.6-1.3); POTASSIUM - SERUM 4.3 mmol/L (3.5-5.1)
--- NOTE | 2018-11-27 05:47 | NUR ---
CLEANED FOR INCONTINENCE OF LIQUID STOOL.
[2018-11-27 06:19] VITALS: BP 113/54
--- NOTE | 2018-11-27 07:15 | NUR ---
MORNING ASSESSMETN COMPLETE. SEE ASSESSMENT FLOWSHEET FOR FURTHER DETAILS. PT LYING IN BED AAO X2 TO PERSON AND TIME. FAMILY MEMEBER AT BEDSIDE. DENIES NEEDS AT THIST TIME. CL IN REACH. SIDE RAILS UP X3 FOR PATIENT SAFETY
[2018-11-27 09:44] VITALS: BP 167/79
[2018-11-27 13:16] VITALS: BP 107/57
[2018-11-27 15:19] LABS: IMMUNOFIXATION Note: (()); IMMUNOGLOBULIN A 165 mg/dL (61-437); IMMUNOGLOBULIN G 797 mg/dL (700-1600); IMMUNOGLOBULIN M 28 mg/dL (15-143)
[2018-11-27 15:19] LABS: HEPATITIS C ANTIBODY 0.1 S/CO RAT (0.0-0.9)
[2018-11-27 16:40] VITALS: BP 99/55
--- NOTE | 2018-11-27 19:57 | NUR ---
RESUMING CARE. PT LAYING IN BED EYES CLOSED BREATH SOUNDS EVEN RT IJ TRIALYSIS RUNNING PROCAL @50 AND NS @ BANDAR SANCHEZ IN PLACE FAMILT @ BEDSIDE CALL LIGHT IN REACH WILL CONT TO MONITOR
[2018-11-27 21:14] VITALS: BP 121/58
[2018-11-28] VITALS: BP 126/47
--- NOTE | 2018-11-28 04:04 | NUR ---
RN NOTE: PATIENT RESTING COMFORTABLY IN BED. RESPIRATIONS ARE EVEN AND UNLABORED. NO S/S OF DISTRESS. NO C/O PAIN. CALL LIGHT WITHIN REACH.
[2018-11-28 05:15] LABS: HEPATITIS BE ANTIBODY Negative (Negative)
[2018-11-28 05:20] VITALS: BP 117/53
[2018-11-28 06:40] LABS: BASOPHILS 0.8 % (0-2); EOSINOPHILS 2.9 % (0-7); HEMATOCRIT 26.5 % (42.0-54.0); HEMOGLOBIN 8.8 g/dL (13.5-17.5); IMMATURE GRANULOCYTES 0.3 % (0-5); MCH 27.2 pg (26.0-34.0); MCHC 33.2 g/dL (31.0-37.0); MEAN PLATELET VOLUME 10.2 fL (7.4-10.4); MONOCYTES 11.7 % (2-11); NEUTROPHILS 74.3 % (40-80); PLATELET COUNT 139 10x3/uL (130-400); RBC 3.23 10x6/uL (4.20-6.10); RDW 13.1 % (11.5-14.5); WBC 7.6 10x3/uL (4.8-10.8)
[2018-11-28 07:07] LABS: ANION GAP 18.8 mmol/L (8-16); CALCIUM 7.9 mg/dL (8.5-10.1); CARBON DIOXIDE 22.5 mmol/L (21.0-32.0); POTASSIUM - SERUM 4.3 mmol/L (3.5-5.1)
[2018-11-28 07:13] LABS: CREATININE - SERUM 5.9 mg/dL (0.6-1.3)
--- NOTE | 2018-11-28 07:27 | NUR ---
REPORT RECEIVED. WILL CONTINUE WITH POC. PT CURRENTLY LYING SEMI FOWLERS. CALL LIGHT W/I REACH. PT IS AA BUT CONFUSED TO SITUATION. PT IS UP WITH ASSIST. RR ARE EVEN AND UNLABORED ON RA. PROCAL INFUSING @50ML/HR VIA R.IJ TRIALYSIS. PORTILLO IN PLACE AND DRAINING URINE. PT DENIES ANY NEEDS AT THIS TIME. WILL CTM.
--- NOTE | 2018-11-28 08:43 | NUR ---
RESTS IN BED WITH EYES CLOSED. FAMILY AT BS. CALL LIGHT IN REACH. WILL MONITOR NEEDS.
[2018-11-28 09:57] LABS: % SATURATION 25 % (15-55); IRON 56 ug/dl (35-150); TOTAL IRON BIND CAPACITY 218 ug/dl (260-445); UNSAT IRON BIND CAPACITY 162 ug/dl (150-375)
[2018-11-28 10:20] LABS: HEPATITIS BE ANTIGEN Negative (Negative)
--- NOTE | 2018-11-28 13:21 | MORECARE ---
CASE MANAGEMENT DISCHARGE SUMMARY PATIENT: AFSHIN HARVEY UNIT: [id number] ADM DATE: 11/21/18 AGE: 78 : 39 SEX: M ROOM/BED: D.2111 AUTHOR: VINAY WITT PHYSICIAN: REFERRING PHYSICIAN: DEEDEE RODRIGUEZ DO DATE OF SERVICE: 11/28/18 Discharge Plan Patient Name: AFSHIN HARVEY Facility: [facility]:[place] : 1940 Planned Disposition: Jail Facility Anticipated Discharge Date: Discharge Date: Expected LOS: Initial Reviewer: [email or web address] Initial Review Date: 11/21/2018 Generated: 11/28/18 2:21 pm Comments DCP- Discharge Planning Updated by [email or web address]: Perla Wei on 11/21/18 4:[address] Patient Name: AFSHIN HARVEY Admission Status: ER Accout number: [id number] Admission Date: 11-21-2018 : 1940 Admission Diagnosis: Attending: DEEDEE RODRIGUEZ Current LOS: 1 Anticipated DC Date: Planned Disposition: Primary Insurance: MEDICARE A & B Discharge Planning Comments: CM met with patient's daughter (May) at bedside. Patient confused at this time. May states that patient lives at home with his spouse (Lolly) in [place]. She states that Lolly is currently sick that is why she isn't here. May states that patient has been admitted to hospital 3 times since 09/24/18. She stated patient was in Rehab facility trying to increase his strength so he could return home and then was readmitted to [place]. Patient was then transferred here for higher level of care. May states patient did have services with [facility] but they was only coming out to draw labs because he was on IV antibiotics. Uncertain of disposition at this time d/t altered mental status. CM will continue to follow and assist as needed with discharge planning. Rn Obgyn: Perla Wei DCPIA - Discharge Planning Initial Assessment Updated by [email or web address]: Perla Wei on 11/21/18 5:25 pm * Is the patient Alert and Oriented? No * How many steps to enter\exit or inside your home? * PCP Dr. Solis @ [facility] in [place] * Pharmacy [facility] * Preadmission Environment Home with Family * ADLs Independent * Other Equipment Yao, Walker * List name and contact numbers for known caregivers / representatives who currently or will assist patient after discharge: Lolly Harvey - - [phone], May Parks - daughter- [phone] * Verbal permission to speak to the caregivers and representatives has been obtained from the patient. Yes * Community resources currently utilized Home Health * Please name any agencies selected above. [facility] - [place] for Labs * Additional services required to return to the preadmission environment? No * Can the patient safely return to the preadmission environment? Yes * Has this patient been hospitalized within the prior 30 days at any hospital? Yes External Providers External Provider: OTHER-OTHER Next Contact Date: 11/29/2018 Service Request Date: Service Type: Resolution: Reviewer: Comments: Last DP export: 11/21/18 4:46 pm Patient Name: AFSHIN HARVEY Page 85791 at 1321 All edits/amendments must be made on the electronic document DICTATION DATE: 11/28/18 132 SHINGLE TRIMMER: LORENE 11/28/18 1320 RPT#: [id number] DC DATE: STATUS: ADM IN [facility] [address] [place] [address] END OF REPORT
--- NOTE | 2018-11-28 13:37 | MORECARE ---
CASE MANAGEMENT DISCHARGE SUMMARY PATIENT: AFSHIN HARVEY UNIT: [id number] ADM DATE: 11/21/18 AGE: 78 : 39 SEX: M ROOM/BED: D.2111 AUTHOR: EDUAR,DOC PHYSICIAN: REFERRING PHYSICIAN: DEEDEE RODRIGUEZ DO DATE OF SERVICE: 11/28/18 Discharge Plan Patient Name: AFSHIN HARVEY Facility: [facility]:[place] : 1940 Planned Disposition: [facility]sp Facility Anticipated Discharge Date: Discharge Date: Expected LOS: Initial Reviewer: [id number] Initial Review Date: 11/21/2018 Generated: 11/28/18 2:37 pm Comments DCP- Discharge Planning Updated by [email or web address]: Helder Aguilar on 11/28/18 12:[address] Patient Name: AFSHIN HARVEY Encounter No: [id number] : 1940 Primary Insurance: MEDICARE A & B Anticipated DC Date: Planned Disposition: [facility]sp Facility External Planned Provider: [facility], MEDICARE REHAB BED DCP follow-up note: CM REVIEWED CHART, PAPERWORK IN CHART INDICATES PT WAS IN [facility] FOR REHAB SERVICES PRIOR TO HOSPITALIZATION. CM SPOKE TO PT'S SPOUSE IN ROOM TO DISCUSS DISCHARGE PLANNING AND NEEDS. [facility] FOR ABOUT 2 WEEKS PRIOR TO HOSPITAL ADMISSION TO [facility] AND THEN TRANSFER HERE FOR HIGHER LEVEL OF CARE. THEY PLAN FOR PT TO RETURN TO [facility] AT DISCHARGE FOR CONTINUED REHAB SERVICES AND [facility] IS HOLDING BED PER PT'S SPOUSE. CM PROVIDED CUSTODIAL FACILITY LISTING AND SPOUSE SIGNED CHOICE LETTER FOR [facility]. CM FAXED UPDATE TO [facility], . PT WILL REQUIRE PHYSICAL THERAPY EVALUATION AND NOTES FAXED TO [facility] FOR CUSTODIAL FACILITY READMISSION AT HOSPITAL DISCHARGE. CM TO CONTINUE TO FOLLOW AND ASSIST NEEDED. JOHNY Easley DCP- Discharge Planning Updated by [id number]: Perla Wei on 11/21/18 4:[address] Patient Name: AFSHIN HARVEY Admission Status: ER Accout number: [id number] Admission Date: 11-21-2018 : 1940 Admission Diagnosis: Attending: DEEDEE RODRIGUEZ Current LOS: 1 Anticipated DC Date: Planned Disposition: Primary Insurance: MEDICARE A & B Discharge Planning Comments: CM met with patient's daughter (May) at bedside. Patient confused at this time. May states that patient lives at home with his spouse (Lolly) in [place]. She states that Lolly is currently sick that is why she isn't here. May states that patient has been admitted to hospital 3 times since 09/24/18. She stated patient was in Rehab facility trying to increase his strength so he could return home and then was readmitted to [place]. Patient was then transferred here for higher level of care. May states patient did have HH services with [facility] but they was only coming out to draw labs because he was on IV antibiotics. Uncertain of disposition at this time d/t altered mental status. CM will continue to follow and assist as needed with discharge planning. Corporate Director Talent Assessment: Perla Wei DCA - Discharge Planning Initial Assessment Updated by [id number]: Perla Wei on 11/21/18 5:25 pm * Is the patient Alert and Oriented? No * How many steps to enter\exit or inside your home? * PCP Dr. Solis @ [facility] in [place] * Pharmacy [facility] * Preadmission Environment Home with Family * ADLs Independent * Other Equipment Cane, Walker * List name and contact numbers for known caregivers / representatives who currently or will assist patient after discharge: Lolly Harvey - - [phone], May Parks - daughter- [phone] * Verbal permission to speak to the caregivers and representatives has been obtained from the patient. Yes * Community resources currently utilized Home Health * Please name any agencies selected above. [facility] - [place] for Labs * Additional services required to return to the preadmission environment? No * Can the patient safely return to the preadmission environment? Yes * Has this patient been hospitalized within the prior 30 days at any hospital? Yes Coverage Notice Reviewer: [id number] - Helder Aguilar Notice Issued Date-Time: 11/28/2018 12:45 Notice Type: Patient Choice Letter Notice Delivered To: Family Member Relationship to Patient: Spouse Addictions Counselor Assistant Name: VILLA HARVEY Delivery Method: HAND - Hand Delivered Jyoti Days: Prior Verbal Notification: Recipient Understood Notice: Yes Recipient Signature: Yes Med Rec Note Co-signed by Attending: Coverage Notice Comment: [facility] Last DP export: 11/28/18 12:21 p Patient Name: AFSHIN HARVEY Page [phone] at 1337 All edits/amendments must be made on the electronic document DICTATION DATE: 11/28/181336 ANIMAL SITTER: LORENE 11/28/187 RPT#: [id number] DC DATE: STATUS: ADM IN [facility] [address] [place] [address] END OF REPORT
[2018-11-28 15:45] VITALS: BP 103/55
[2018-11-28 17:10] LABS: SPE - A/G RATIO 0.9 (0.7-1.7); SPE - ALBUMIN 2.8 g/dL (2.9-4.4); SPE - ALPHA-1 GLOBULIN 0.3 g/dL (0.0-0.4); SPE - ALPHA-2 GLOBULIN 0.9 g/dL (0.4-1.0); SPE - BETA GLOBULIN 0.9 g/dL (0.7-1.3); SPE - GAMMA GLOBULIN 0.8 g/dL (0.4-1.8); SPE - M-SPIKE Not Observed g/dL (Not Observed); SPE - TOTAL PROTEIN 5.8 g/dL (6.0-8.5)
--- NOTE | 2018-11-28 17:40 | NUR ---
PT CURRENTLY LYING SEMI FOWLERS. CALL LIGHT W/I REACH. PORTILLO IN PLACE AND DRAINING. FAMILY AT BEDSIDE. RR EVEN AND UNLABORED ON RA. PROCAL INFUSING @50ML/HR VIA R.IJ TRIALYSIS. PT DENIES ANY NEEDS AT THIS TIME. WILL PASS REPORT AND CONTINUE WITH POC.
--- NOTE | 2018-11-28 19:45 | NUR ---
RESUMING CARE. PT LAYING IN BED ALERT BUT CONFUSED BREATH SOUNDS EVEN/UNLABORED RT IJ TRIALYSIS PROCAL @50 FAMILY @BEDSIDE NO C/O PAIN OR DISTRESS WILL CONT TO MONITOR
[2018-11-28 20:37] VITALS: BP 99/36
[2018-11-29 00:56] VITALS: BP 108/48
[2018-11-29 03:49] VITALS: BP 111/61
[2018-11-29 07:05] LABS: ANION GAP 15.9 mmol/L (8-16); CARBON DIOXIDE 24.7 mmol/L (21.0-32.0); CREATININE - SERUM 4.8 mg/dL (0.6-1.3); POTASSIUM - SERUM 4.6 mmol/L (3.5-5.1)
[2018-11-29 07:16] LABS: BASOPHILS 0.9 % (0-2); EOSINOPHILS 2.3 % (0-7); HEMATOCRIT 27.1 % (42.0-54.0); HEMOGLOBIN 8.9 g/dL (13.5-17.5); IMMATURE GRANULOCYTES 0.3 % (0-5); LYMPHOCYTES 12.3 % (15-50); MCH 26.9 pg (26.0-34.0); MCHC 32.8 g/dL (31.0-37.0); MCV 81.9 fL (80.0-100.0); MEAN PLATELET VOLUME 10.6 fL (7.4-10.4); MONOCYTES 10.4 % (2-11); NEUTROPHILS 73.8 % (40-80); PLATELET COUNT 131 10x3/uL (130-400); RBC 3.31 10x6/uL (4.20-6.10); RDW 12.9 % (11.5-14.5); WBC 6.9 10x3/uL (4.8-10.8)
[2018-11-29 07:44] LABS: APTT 34.7 SECONDS (22.8-39.4); INR 1.08 (0.85-1.17); PROTIME 13.5 SECONDS (11.6-15.0)
--- NOTE | 2018-11-29 08:30 | NUR ---
PT SITTING ON EDGE OF BED WITH PRESENT. PT REPORTS URGE TO HAVE A BM. DELEON NONSLIP SOCKS APPLIED TO PT. ASSISTED PT TO RESTROOM. PT HAD A LARGE LOOSE BM. PT ASSISTED BACK TO EDGE OF BED. PT GOWN CHANGED TO YELLOW GOWN. BED LINENS CHANGED. SET UP BREAKFAST TRAY FOR PT. SHIFT ASSESSMENT PERFORMED. DENIES PAIN AT THIS TIME. DENIES ANY OTHER NEEDS AT THIS TIME. WILL CONT TO FOLLOW PLAN OF CARE.
[2018-11-29 09:15] VITALS: BP 127/50
--- NOTE | 2018-11-29 12:58 | NUR ---
LAB CALLED [facility] POS[facility]IVE BLOOD CULTURE. NOTIFIED PRIMARY AND THEY STATE TO NOTIFY . PAGED AND SHE WILL DISCUSS WITH LAB AND LET US KNOW IF ANY FURTHER ACTION NEEDED. PT IS A&O CURRENTLY WHICH IS BETTER BECAUSE HE WAS VERY CONFUSED. PT AFEBRILE AND VSS. WILL CTM.
--- NOTE | 2018-11-29 14:24 | NUR ---
Nutrition follow-up: Diet advanced to ada mechanical soft with ~10% po intake at meals ProcalAmine PPN infusing @ 50 ml/hr Labs reviewed +BM Wt: 167# Recommend nutrition support of tube feeding (PEG tube vs NGT placement) due to pt with very poor po intake and new dialysis. RDN following.
--- NOTE | 2018-11-29 15:50 | CN ---
PATIENT NAME:AFSHIN NORIEGA MEDICAL RECORD: [id number] : 38 LOCATION:D. D.2111 ADMIT DATE: 11/21/18 ACCOUNT: [id number] CONSULTING PHYSICIAN: ESA GREEN MD REFERRING PHYSICIAN: DEEDEE RODRIGUEZ DO DATE OF CONSULTATION: 11/27/2018 PSYCHIATRIC CONSULTATION IDENTIFYING DATA: The patient is 78 years old and he is admitted to the hospital secondary to possible endocarditis and acute kidney injury. CHIEF COMPLAINT: Confusion. HISTORY OF PRESENT ILLNESS: The patient is clearly very confused. His is at bedside and provides very useful history. Apparently, he was functioning very well just a few weeks ago prior to the incident of believed endocarditis. He now is oriented only to person and not making much in the way of sense. He denies that he would seek to harm himself or others. He apparently does realize that he is not functioning or thinking clearly. MENTAL STATUS EXAMINATION: The patient is awake, alert, and oriented to person and place only. His mood is euthymic. His affect is appropriate. Thought processes are disorganized and he has impairment of his memory, concentration, and abstraction abilities. He has no thoughts of harming himself or others. ASSESSMENT: Delirium secondary to multiple metabolic causes. PLAN: The patient apparently did have some cognitive slowing prior to being admitted here. He, however, has acutely worsened. 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 I have explained to the that if this is an acute event related to metabolic and toxic factors, he will improve once they resolve. If they do not, I would be happy to see him again. They are not reporting any significant behavior problems or outbursts at this time. I would take a conservative approach to ordering medications in this case. However, if behavior problems become an issue, I would recommend a low dose of Geodon IM or perhaps a scheduled dose of the same medication. TRANSINT:[id number] Voice Confirmation ID: [id number] DOCUMENT ID: [id number] ESA GREEN MD at 1550 CC: [id number] DICTATION DATE: 11/27/18 1752 DATA RECOVERY PLANNER: 11/27/18 1907 ADM IN [place] [id number]
--- NOTE | 2018-11-29 19:40 | NUR ---
RESUMING CARE. PT LAYING IN BED EYES CLOSED BREATH SOUNDS EVEN PT NOW HAS 02 VIA NC AT 2L , PT HAS LEFT IJ TRIAYLSIS WITH PROCAL @ 50, PORTILLO IN PLACE NO C/O PAIN OR DISTRESS AT THIS TIME DAUGHTER @ BEDSIDE WILL CONT TO MONITOR
[2018-11-29 20:00] VITALS: BP 110/51
[2018-11-30 00:01] VITALS: BP 123/68
[2018-11-30 04:00] VITALS: BP 106/69
--- NOTE | 2018-11-30 05:22 | NUR ---
BOOM WORKER AT BEDSIDE TO OBTAIN VITALS, CALL LIGHT IN REACH. WILL CONTINUE WITH PLAN OF CARE.
[2018-11-30 05:37] LABS: EOSINOPHILS 1.8 % (0-7); HEMATOCRIT 25.8 % (42.0-54.0); HEMOGLOBIN 8.4 g/dL (13.5-17.5); IMMATURE GRANULOCYTES 0.3 % (0-5); LYMPHOCYTES 11.4 % (15-50); MCH 26.5 pg (26.0-34.0); MCHC 32.6 g/dL (31.0-37.0); MCV 81.4 fL (80.0-100.0); MEAN PLATELET VOLUME 10.9 fL (7.4-10.4); MONOCYTES 14.3 % (2-11); NEUTROPHILS 71.2 % (40-80); PLATELET COUNT 117 10x3/uL (130-400); RBC 3.17 10x6/uL (4.20-6.10); RDW 12.9 % (11.5-14.5); WBC 6.8 10x3/uL (4.8-10.8)
[2018-11-30 05:39] LABS: ANION GAP 17.1 mmol/L (8-16); CARBON DIOXIDE 22.8 mmol/L (21.0-32.0); CREATININE - SERUM 5.8 mg/dL (0.6-1.3); POTASSIUM - SERUM 4.9 mmol/L (3.5-5.1)
[2018-11-30 08:00] VITALS: BP 125/62
--- NOTE | 2018-11-30 08:30 | NUR ---
PT SITTING UP IN BED EATING BREAKFAST. DAUGHTER PRESENT IN ROOM. AM MEDICATIONS GIVEN ORDERED. NO COMPLICATIONS NOTED. SHIFT ASSESSMENT PERFORMED. DENIES PAIN AT THIS TIME. DENIES NEEDS AT THIS TIME, WILL CONT TO FOLLOW PLAN OF CARE
--- NOTE | 2018-11-30 10:10 | NUR ---
DIALYSIS CALLED AND STATES THEY ARE READY FOR PT. PT ASSISTED TO DIALYSIS VIA WHEELCHAIR.
[2018-11-30 15:03] VITALS: BP 99/41
--- NOTE | 2018-11-30 17:30 | NUR ---
PORTILLO CATHETER REMOVED ORDERED, CATHETER TIP INTACT, NO COMPLICATIONS NOTED AT THIS TIME, DENIES PAIN AT THIS TIME, DENIES ANY OTHER NEEDS AT THIS TIME, DAUGHTER AT BEDSIDE, WILL CONT TO FOLLOW PLAN OF CARE
[2018-11-30 22:08] VITALS: BP 126/71
--- NOTE | 2018-11-30 22:18 | NUR ---
PT RESTING QUIETLY IN BED ALONE. DAUGHTER JUST LEFT FOR THE NIGHT. CONFIRMED THAT [facility] PAD IS IN PLACE AND TURNED ON PT MAY BE CONFUSED UPON WAKING UP AND IS A FALL RISK. PT DENIES ANY CURRENT PAIN OR NEEDS AND WANTS TO TRY AND SLEEP. WILL CTM.
--- NOTE | 2018-12-01 00:39 | NUR ---
REPORT RECEIVED. EVENING ROUNDS COMPLETED. PT SITTING UP ON SIDE OF BED USING URINAL. INTRODUCED SELF TO PT. PT DENIES FURTHER NEEDS NO S/S OF DISTRESS NOTED. BED IN LOW POSITION. CALL LIGHT IN REACH. WILL CTM.
--- NOTE | 2018-12-01 04:12 | NUR ---
RESTING IN BED WITH EYES CLOSED. NO S/S OF DISTRESS OBSERVED. CALL LIGHT IN REACH. WILL CONT. POC.
[2018-12-01 05:39] LABS: BASOPHILS 0.9 % (0-2); HEMATOCRIT 27.9 % (42.0-54.0); HEMOGLOBIN 9.2 g/dL (13.5-17.5); IMMATURE GRANULOCYTES 0.4 % (0-5); LYMPHOCYTES 13.4 % (15-50); MCH 27.1 pg (26.0-34.0); MCV 82.1 fL (80.0-100.0); MEAN PLATELET VOLUME 10.6 fL (7.4-10.4); MONOCYTES 16.9 % (2-11); NEUTROPHILS 67.4 % (40-80); RDW 12.9 % (11.5-14.5); WBC 6.7 10x3/uL (4.8-10.8)
[2018-12-01 05:42] LABS: PLATELET COUNT 158 10x3/uL (130-400)
[2018-12-01 05:47] LABS: ANION GAP 15.4 mmol/L (8-16); CALCIUM 8.3 mg/dL (8.5-10.1); CARBON DIOXIDE 26.9 mmol/L (21.0-32.0); POTASSIUM - SERUM 4.3 mmol/L (3.5-5.1)
[2018-12-01 05:55] LABS: CREATININE - SERUM 4.2 mg/dL (0.6-1.3)
--- NOTE | 2018-12-01 06:38 | NUR ---
PT SITTING UP IN BED WITH EYES CLOSED, RR EVEN AND UNLABORED. NO S/S OF DISTRESS NOTED. CALL LIGHT IN REACH. WILL CTM.
[2018-12-01 07:40] VITALS: BP 128/34
[2018-12-01 11:14] VITALS: BP 113/46
--- NOTE | 2018-12-01 14:17 | NUR ---
ALERT AND ORIENTED TO SELF AND TIME ONLY. FALL RISK PRECAUTIONS IN PLACE AND REQUIRES REDIRECTING. O2 2L N/C. USES URINAL. RT. IJ INTACT DENIES ANY PAIN OR DISCOMFORT AT THIS TIME. ENCOURAGED TO USE CALL LIGHT FOR ASSIST.
--- NOTE | 2018-12-01 19:19 | NUR ---
EVENING ROUNDS COMPLETED. REPORT RECEIVED. PT SITTING UP IN BED WITH EYES OPEN, RR EVEN AND UNLABORED. BED IN LOW POSITION. AND DAUGHTER AT BEDSIDE. INTRODUCED SELF TO PT. PT DENIES FURTHER NEEDS AT THIS TIME. NO S/S OF DISTRESS NOTED. CALL LIGHT IN REACH. WILL CTM.
[2018-12-01 20:00] VITALS: BP 136/65
[2018-12-02] VITALS: BP 136/62
--- NOTE | 2018-12-02 01:51 | NUR ---
PT RESTING IN BED WITH NO DISTRESS. RESPS NONLABORED. CALL LIGHT IN REACH. MONITOR AND CPOC.
[2018-12-02 04:00] VITALS: BP 144/70
--- NOTE | 2018-12-02 06:07 | NUR ---
PT SITTING UP IN BED WITH EYES OPEN, RR EVEN AND UNLABORED. BED IN LOW POSITION. NO S/S OF DISTRESS NOTED. 142 BLOOD SUGAR CHECKED. NO COVERAGE PER SLIDING SCALE. DENIES FURTHER NEEDS AT THIS TIME. CALL LIGHT IN REACH. WILL CTM.
[2018-12-02 08:06] VITALS: BP 152/64
[2018-12-02 09:48] LABS: CALCIUM 8.1 mg/dL (8.5-10.1); CARBON DIOXIDE 26.4 mmol/L (21.0-32.0); POTASSIUM - SERUM 4.4 mmol/L (3.5-5.1)
[2018-12-02 09:49] LABS: CREATININE - SERUM 5.4 mg/dL (0.6-1.3)
[2018-12-02 13:06] VITALS: BP 143/66
[2018-12-02 17:55] VITALS: BP 146/59
--- NOTE | 2018-12-02 18:15 | NUR ---
ALERT AND ORIENTED X4. SITTING UP IN BED. SPOUSE AT BEDSIDE. BED ALARM OFF WHILE SPOUSE AT BEDSIDE. ENCOURAGE TO INFORM STAFF WHEN LEAVING ROOM FOR PATIENT SAFETY. SPOUSE CONFIRMS STAFF WILL BE NOTIFIED BEFORE LEAVING. DENIES ANY NEEDS. CONTINUE PLAN OF CARE AND SAFETY PRECAUTIONS.
--- NOTE | 2018-12-02 19:30 | NUR ---
RECEIVED REPORT, WILL ASSUME CARE OF PT, FAMILY ASKING ABOUT RENAL BIOSPY TOMORROW, TOLD THEM WOULD KEEP PT NPO, BUT I DIDNT HAVE ORDERS AT THIS TIME, BED IS LOW, SRX2, CALL LIGHT IN REACH, WILL CONTINUE PLAN OF CARE
[2018-12-02 20:24] VITALS: BP 133/62
[2018-12-03 01:24] VITALS: BP 145/74
--- NOTE | 2018-12-03 02:26 | NUR ---
ASSISTED PT TO RESTROOM
--- NOTE | 2018-12-03 04:25 | NUR ---
LAB DRAW COMPLETE, [id number] COVERAGE PT IS NPO
--- NOTE | 2018-12-03 04:56 | NUR ---
RESTING WITH NO DISTRESS. RESPS EVEN/NONLABORED. MONITOR AND CPOC.
[2018-12-03 05:02] VITALS: BP 138/69
[2018-12-03 06:24] LABS: ANION GAP 16.8 mmol/L (8-16); CARBON DIOXIDE 23.6 mmol/L (21.0-32.0); CREATININE - SERUM 5.6 mg/dL (0.6-1.3); POTASSIUM - SERUM 4.4 mmol/L (3.5-5.1)
[2018-12-03 06:44] LABS: INR 1.13 (0.85-1.17)
[2018-12-03 07:03] VITALS: BP 144/74
--- NOTE | 2018-12-03 08:02 | NUR ---
REPORT RECEIVED. WILL CONTINUE WITH POC. PT CURRENTLY LYING SUPINE. CALL LIGHT W/I REACH. PT IS AAO AND UP WITH ASSIST. RR EVEN AND UNLABORED ON 2L 02. AT BEDSIDE. PT IS NPO FOR BIOPSY. CONSENTS SIGNED. IVETTE TRIALYSIS IS SALINE LOCKED. PT DENIES ANY NEEDS AT THIS TIME. WILL CTM.
[2018-12-03 08:05] LABS: BASOPHILS 0.9 % (0-2); EOSINOPHILS 0.9 % (0-7); HEMATOCRIT 25.7 % (42.0-54.0); HEMOGLOBIN 8.4 g/dL (13.5-17.5); IMMATURE GRANULOCYTES 0.9 % (0-5); LYMPHOCYTES 11.5 % (15-50); MCHC 32.7 g/dL (31.0-37.0); MCV 82.6 fL (80.0-100.0); MEAN PLATELET VOLUME 10.9 fL (7.4-10.4); MONOCYTES 14.2 % (2-11); NEUTROPHILS 71.6 % (40-80); PLATELET COUNT 209 10x3/uL (130-400); RBC 3.11 10x6/uL (4.20-6.10); RDW 13.3 % (11.5-14.5); WBC 6.7 10x3/uL (4.8-10.8)
[2018-12-03 12:53] VITALS: BP 134/67
--- NOTE | 2018-12-03 12:56 | MORECARE ---
CASE MANAGEMENT DISCHARGE SUMMARY PATIENT: AFSHIN HARVEY UNIT: [id number] ADM DATE: 11/21/18 AGE: 78 : 39 SEX: M ROOM/BED: D.2111 AUTHOR: VINAY WITT PHYSICIAN: REFERRING PHYSICIAN: DEEDEE RODRIGUEZ DO DATE OF SERVICE: 12/03/18 Discharge Plan Patient Name: AFSHIN HARVEY Facility: [facility]:[place] : 1940 Planned Disposition: [facility] Facility Anticipated Discharge Date: Discharge Date: Expected LOS: Initial Reviewer: [email or web address] Initial Review Date: 11/21/2018 Generated: 12/03/18 1:55 pm Comments DCP- Discharge Planning Updated by [email or web address]: Helder Aguilar on 12/03/18 11:[address] Patient Name: AFSHIN HARVEY Encounter No: [id number] : 1940 Primary Insurance: MEDICARE A & B Anticipated DC Date: Planned Disposition: [facility] Facility External Planned Provider: [facility], MEDICARE REHAB BED DCP follow-up note: CM FAXED UPDATE WITH PHYSICAL THERAPY EVALUATION AND NOTES TO [facility], . [facility] PLANS TO ACCEPT PT BACK FOR SKILLED CARE AT HOSPITAL DISCHARGE. FAX DISCHARGE INFORMATION TO [facility] AT [phone]; NURSE REPORT TO BE CALLED TO [facility], . [facility] TO ARRANGE VAN TRANSPORTATION. JOHNY Easley MANAGEMENT DCP- Discharge Planning Updated by [email or web address]: Helder Aguilar on 11/28/18 12:[address] Patient Name: AFSHIN HARVEY Encounter No: [id number] : 1940 Primary Insurance: MEDICARE A & B Anticipated DC Date: Planned Disposition: [facility] Facility External Planned Provider: [facility], MEDICARE REHAB BED DCP follow-up note: CM REVIEWED CHART, PAPERWORK IN CHART INDICATES PT WAS IN [facility] FOR REHAB SERVICES PRIOR TO HOSPITALIZATION. CM SPOKE TO PT'S SPOUSE IN ROOM TO DISCUSS DISCHARGE PLANNING AND NEEDS. PT WAS AT [facility] FOR REHAB AND IV ANTIBIOTIC ADMINISTRATION SERVICES FOR ABOUT 2 WEEKS PRIOR TO HOSPITAL ADMISSION TO [facility] AND THEN TRANSFER HERE FOR HIGHER LEVEL OF CARE. THEY PLAN FOR PT TO RETURN TO [facility] AT DISCHARGE FOR CONTINUED REHAB SERVICES AND [facility] IS HOLDING BED PER PT'S SPOUSE. CM PROVIDED SENIOR CARE FACILITY LISTING AND SPOUSE SIGNED CHOICE LETTER FOR [facility]. CM FAXED UPDATE TO [facility], . PT WILL REQUIRE PHYSICAL THERAPY EVALUATION AND NOTES FAXED TO [facility] FOR SENIOR CARE FACILITY READMISSION AT HOSPITAL DISCHARGE. CM TO CONTINUE TO FOLLOW AND ASSIST NEEDED. Helder Aguilar, CASE MANAGEMENT DCP- Discharge Planning Updated by [email or web address]: Perla Wei on 11/21/18 4:[address] Patient Name: AFSHIN HARVEY Admission Status: ER Accout number: [id number] Admission Date: 11-21-2018 : 1940 Admission Diagnosis: Attending: DEEDEE RODRIGUEZ Current LOS: 1 Anticipated DC Date: Planned Disposition: Primary Insurance: MEDICARE A & B Discharge Planning Comments: CM met with patient's daughter (May) at bedside. Patient confused at this time. May states that patient lives at home with his spouse (Lolly) in [place]. She states that Lolly is currently sick that is why she isn't here. May states that patient has been admitted to hospital 3 times since 09/24/18. She stated patient was in Rehab facility trying to increase his strength so he could return home and then was readmitted to [place]. Patient was then transferred here for higher level of care. May states patient did have HH services with [facility] but they was only coming out to draw labs because he was on IV antibiotics. Uncertain of disposition at this time d/t altered mental status. CM will continue to follow and assist as needed with discharge planning. Custodian Blood Bank: Perla Wei DCPIA - Discharge Planning Initial Assessment Updated by [id number]: Perla Wei on 11/21/18 5:25 pm * Is the patient Alert and Oriented? No * How many steps to enter\exit or inside your home? * PCP Dr. Solis @ [facility] in [place] * Pharmacy [facility] * Preadmission Environment Home with Family * ADLs Independent * Other Equipment Cane, Walker * List name and contact numbers for known caregivers / representatives who currently or will assist patient after discharge: Lolly Harvey - - [phone], May Parks - daughter- [phone] * Verbal permission to speak to the caregivers and representatives has been obtained from the patient. Yes * Community resources currently utilized Home Health * Please name any agencies selected above. [facility] - [place] for Labs * Additional services required to return to the preadmission environment? No * Can the patient safely return to the preadmission environment? Yes * Has this patient been hospitalized within the prior 30 days at any hospital? Yes Coverage Notice Reviewer: [id number] Jessica Aguilar Notice Issued Date-Time: 11/28/2018 12:45 Notice Type: Patient Choice Letter Notice Delivered To: Family Member Relationship to Patient: Spouse Egg Setter Name: VILLA HARVEY Delivery Method: HAND - Hand Delivered Jyoti Days: Prior Verbal Notification: Recipient Understood Notice: Yes Recipient Signature: Yes Med Rec Note Co-signed by Attending: Coverage Notice Comment: [facility] Last DP export: 11/28/18 12:37 p Patient Name: AFSHIN HARVEY Page 00620 at 1256 All edits/amendments must be made on the electronic document DICTATION DATE: 12/03/18 1255 RIDE OPERATOR: LORENE 12/03/18 1255 RPT#: [id number] DC DATE: STATUS: ADM IN [facility] [address] [place] [address] END OF REPORT
--- NOTE | 2018-12-03 14:23 | MORECARE ---
CASE MANAGEMENT DISCHARGE SUMMARY PATIENT: AFSHIN HARVEY UNIT: [id number] ADM DATE: 11/21/18 AGE: 78 : 39 SEX: M ROOM/BED: D.2111 AUTHOR: EDUAR,DOC PHYSICIAN: REFERRING PHYSICIAN: DEEDEE RODRIGUEZ DO DATE OF SERVICE: 12/03/18 Discharge Plan Patient Name: AFSHIN HARVEY Facility: [facility]:[place] : 1940 Planned Disposition: Senior Care Facility Anticipated Discharge Date: Discharge Date: Expected LOS: Initial Reviewer: [id number] Initial Review Date: 11/21/2018 Generated: 12/03/18 3:23 pm Comments DCP- Discharge Planning Updated by [id number]: Helder Aguilar on 12/03/18 1:[address] Patient Name: AFSHIN HARVEY Encounter No: [id number] : 1940 Primary Insurance: MEDICARE A & B Anticipated DC Date: Planned Disposition: Senior Care Facility External Planned Provider: [facility], MEDICARE REHAB BED DCP follow-up note: CM FAXED UPDATE WITH PHYSICAL THERAPY EVALUATION AND NOTES TO [facility], . [facility] PLANS TO ACCEPT PT BACK FOR SKILLED CARE AT HOSPITAL DISCHARGE. FAX DISCHARGE INFORMATION TO [facility] AT [phone]; NURSE REPORT TO BE CALLED TO [facility], . [facility] TO ARRANGE VAN TRANSPORTATION. Helder Aguilar, CASE MANAGEMENT Appended by Helder Aguilar on 12/03/2018 14:16 SPA ATTENDANT: CM RECEIVED CALL FROM NASREEN OF [facility] WHO INFORMED CM THAT THEY WILL NOT ACCEPT PT IF HE IS TAKING PROCALAMINE OR TPN. NASREEN WOULD LIKE TO BE KEPT INFORMED OF PT'S CONDITION FOR REHAB RETURN TO [facility]. [facility] PLANS TO ACCEPT PT BACK FOR SKILLED CARE AT HOSPITAL DISCHARGE. FAX DISCHARGE INFORMATION TO [facility] AT [phone]; NURSE REPORT TO BE CALLED TO [facility], . [facility] TO ARRANGE VAN TRANSPORTATION. Helder [place], CASE MANAGEMENT DCP- Discharge Planning Updated by [id number]: Helder Aguilar on 11/28/18 12:[address] Patient Name: AFSHIN HARVEY Encounter No: [id number] : 1940 Primary Insurance: MEDICARE A & B Anticipated DC Date: Planned Disposition: Senior Care Facility External Planned Provider: [facility], MEDICARE REHAB BED DCP follow-up note: CM REVIEWED CHART, PAPERWORK IN CHART INDICATES PT WAS IN [facility] FOR REHAB SERVICES PRIOR TO HOSPITALIZATION. CM SPOKE TO PT'S SPOUSE IN ROOM TO DISCUSS DISCHARGE PLANNING AND NEEDS. PT WAS AT [facility] FOR REHAB AND IV ANTIBIOTIC ADMINISTRATION SERVICES FOR ABOUT 2 WEEKS PRIOR TO HOSPITAL ADMISSION TO [facility] AND THEN TRANSFER HERE FOR HIGHER LEVEL OF CARE. THEY PLAN FOR PT TO RETURN TO [facility] AT DISCHARGE FOR CONTINUED REHAB SERVICES AND [facility] IS HOLDING BED PER PT'S SPOUSE. CM PROVIDED DETENTION FACILITY LISTING AND SPOUSE SIGNED CHOICE LETTER FOR [facility]. CM FAXED UPDATE TO [facility], . PT WILL REQUIRE PHYSICAL THERAPY EVALUATION AND NOTES FAXED TO [facility] FOR DETENTION FACILITY READMISSION AT HOSPITAL DISCHARGE. CM TO CONTINUE TO FOLLOW AND ASSIST NEEDED. Helder Aguilar CASE MANAGEMENT DCP- Discharge Planning Updated by [id number]: Perla Wei on 11/21/18 4:[address] Patient Name: AFSHIN HARVEY Admission Status: ER Accout number: [id number] Admission Date: 11-21-2018 : 1940 Admission Diagnosis: Attending: DEEDEE RODRIGUEZ Current LOS: 1 Anticipated DC Date: Planned Disposition: Primary Insurance: MEDICARE A & B Discharge Planning Comments: CM met with patient's daughter (May) at bedside. Patient confused at this time. May states that patient lives at home with his spouse (Lolly) in [place]. She states that Lolly is currently sick that is why she isn't here. May states that patient has been admitted to hospital 3 times since 09/24/18. She stated patient was in Rehab facility trying to increase his strength so he could return home and then was readmitted to [place]. Patient was then transferred here for higher level of care. May states patient did have HH services with [facility] but they was only coming out to draw labs because he was on IV antibiotics. Uncertain of disposition at this time d/t altered mental status. CM will continue to follow and assist as needed with discharge planning. Vat Washer: Perla Wei DCPIA - Discharge Planning Initial Assessment Updated by [id number]: Perla Wei on 11/21/18 5:25 pm * Is the patient Alert and Oriented? No * How many steps to enter\exit or inside your home? * PCP Dr. Solis @ [facility] in [place] * Pharmacy [facility] * Preadmission Environment Home with Family * ADLs Independent * Other Equipment Cane, Walker * List name and contact numbers for known caregivers / representatives who currently or will assist patient after discharge: Lolly Harvey - - [phone], May Parks - daughter- [phone] * Verbal permission to speak to the caregivers and representatives has been obtained from the patient. Yes * Community resources currently utilized Home Health * Please name any agencies selected above. [facility] [place] for Labs * Additional services required to return to the preadmission environment? No * Can the patient safely return to the preadmission environment? Yes * Has this patient been hospitalized within the prior 30 days at any hospital? Yes Coverage Notice Reviewer: [id number] - Helder Aguilar Notice Issued Date-Time: 11/28/2018 12:45 Notice Type: Patient Choice Letter Notice Delivered To: Family Member Relationship to Patient: Spouse Animal Caretaker Name: VILLA HARVEY Delivery Method: HAND - Hand Delivered Jyoti Days: Prior Verbal Notification: Recipient Understood Notice: Yes Recipient Signature: Yes Med Rec Note Co-signed by Attending: Coverage Notice Comment: [facility] Last DP export: 12/03/18 11:56 a Patient Name: AFSHIN HARVEY Page [id number] at 1423 All edits/amendments must be made on the electronic document DICTATION DATE: 12/03/181421 RN PSYCH: LORENE 12/03/181421 RPT#: [id number] [place] DATE: STATUS: ADM IN [facility] [address] [place] [address] END OF REPORT
[2018-12-03 17:47] VITALS: BP 146/64
--- NOTE | 2018-12-03 19:45 | NUR ---
RECEIVED REPORT, WILL ASSUME CARE OF PT, AT BEDSIDE, PT IS SLEEPING, BED IS LOW, SRX2, CALL LIGHT IN REACH, WILL CONTINUE PLAN OF CARE
[2018-12-03 21:03] VITALS: BP 123/57
--- NOTE | 2018-12-03 22:09 | NUR ---
[id number]- DIDNT COVER-PT IS NPO AFTER MIDNIGHT
[2018-12-04 01:03] VITALS: BP 137/68
--- NOTE | 2018-12-04 02:59 | NUR ---
LYING IN BED WITH EYES CLOSED, CALL LIGHT IN REACH. WILL CONTINUE WITH PLAN OF CARE.
[2018-12-04 06:21] VITALS: BP 136/70
[2018-12-04 06:51] LABS: BASOPHILS 0.5 % (0-2); EOSINOPHILS 0.5 % (0-7); HEMATOCRIT 26.8 % (42.0-54.0); HEMOGLOBIN 8.6 g/dL (13.5-17.5); IMMATURE GRANULOCYTES 0.9 % (0-5); LYMPHOCYTES 12.5 % (15-50); MCH 26.7 pg (26.0-34.0); MCHC 32.1 g/dL (31.0-37.0); MCV 83.2 fL (80.0-100.0); MEAN PLATELET VOLUME 10.7 fL (7.4-10.4); MONOCYTES 17.4 % (2-11); NEUTROPHILS 68.2 % (40-80); PLATELET COUNT 219 10x3/uL (130-400); RBC 3.22 10x6/uL (4.20-6.10); RDW 13.4 % (11.5-14.5); WBC 5.5 10x3/uL (4.8-10.8)
[2018-12-04 07:05] LABS: ANION GAP 17.5 mmol/L (8-16); CALCIUM 8.4 mg/dL (8.5-10.1); CARBON DIOXIDE 23.3 mmol/L (21.0-32.0); CREATININE - SERUM 6.4 mg/dL (0.6-1.3); POTASSIUM - SERUM 4.8 mmol/L (3.5-5.1)
--- NOTE | 2018-12-04 07:30 | NUR ---
RECEIVED A/A/OX4. DENIES ANY PAIN OR DISCOMFORT. REMAINS NPO FOR RENAL BX THIS AM. NO REQUESTS OR QUESTIONS ABOUT PROCEDURE. ASSESSMENT COMPLETED. BED IN LOWEST POSITION WITH SIDERAILS UP X 2 AND CALL LIGHT IN REACH. WILL CONTINUE POC.
--- NOTE | 2018-12-04 08:12 | NUR ---
TO OR VIA BED FOR RENAL BX.
--- NOTE | 2018-12-04 09:15 | NUR ---
BACK TO ROOM VIA BED. A/A WITH NO C/O PAIN. DRESSING TO RIGHT FLANK AREA C/D/I.
--- NOTE | 2018-12-04 10:00 | NUR ---
TO DIALYSIS VIA BED.
--- NOTE | 2018-12-04 10:16 | NUR ---
Nutrition follow-up: Pt currently NPO for procedure PO intake of diabetic diet has improved to ~50-75% of some meals Labs reviewed Wt: 171# Last BM charted 10/31 RDN following.
--- NOTE | 2018-12-04 12:45 | NUR ---
RETURNED TO ROOM VIA BED FROM DIALYSIS. NO C/O OR REQUESTS.
--- NOTE | 2018-12-04 16:30 | NUR ---
SLEEPING AT PRESENT. I CONCUR WITH TAXATION ACCOUNTANT ASSESSMENT.
[2018-12-04 19:11] VITALS: BP 110/53
--- NOTE | 2018-12-04 19:45 | NUR ---
RESUMING CARE, PT LAYING IN BED EYES CLOSED BREATH SOUNDS EVEN O2 ON VIA NC 2L , IV RT IJ SL , BED ALARM IN PLACE FAMILY AT BEDSIDE CALL LIGHT REACH WILL CONT TO MONITOR
[2018-12-04 22:27] VITALS: BP 108/45
[2018-12-05 02:16] VITALS: BP 123/52
[2018-12-05 05:44] VITALS: BP 128/59
[2018-12-05 06:18] LABS: BASOPHILS 0.6 % (0-2); EOSINOPHILS 0.3 % (0-7); HEMATOCRIT 27.1 % (42.0-54.0); HEMOGLOBIN 8.9 g/dL (13.5-17.5); IMMATURE GRANULOCYTES 0.7 % (0-5); MCH 27.1 pg (26.0-34.0); MCHC 32.8 g/dL (31.0-37.0); MCV 82.4 fL (80.0-100.0); MEAN PLATELET VOLUME 11.3 fL (7.4-10.4); MONOCYTES 14.7 % (2-11); NEUTROPHILS 73.7 % (40-80); PLATELET COUNT 246 10x3/uL (130-400); RBC 3.29 10x6/uL (4.20-6.10); RDW 13.4 % (11.5-14.5)
[2018-12-05 06:23] LABS: WBC 7.1 10x3/uL (4.8-10.8)
[2018-12-05 06:34] LABS: ANION GAP 15.8 mmol/L (8-16); CALCIUM 8.3 mg/dL (8.5-10.1); CARBON DIOXIDE 25.7 mmol/L (21.0-32.0); POTASSIUM - SERUM 4.5 mmol/L (3.5-5.1)
--- NOTE | 2018-12-05 07:59 | NUR ---
REC'D IN WALKING ROUNDS AWAKE AND ALERT. RESP EVEN AND UNLABORED WITH NO DISTRESS NOTED. CAN EXPRESS NEEDS AND WANTS. NO C/O NOTED OR VOICED. SWELLING AND REDNESS NOTED TO LEFT ARM. NOT WARM TO TOUCH. ASSESSMENT COMPLETED. C/L IN REACH AT BEDSIDE.
[2018-12-05 08:41] VITALS: BP 140/55
--- NOTE | 2018-12-05 09:12 | MORECARE ---
CASE MANAGEMENT DISCHARGE SUMMARY PATIENT: AFSHIN HARVEY UNIT: [id number] ADM DATE: 11/21/18 AGE: 78 : 39 SEX: M ROOM/BED: D.2111 AUTHOR: EDUAR,DOC PHYSICIAN: REFERRING PHYSICIAN: DEEDEE RODRIGUEZ DO DATE OF SERVICE: 12/05/18 Discharge Plan Patient Name: AFSHIN HARVEY Facility: [facility] : 1940 Planned Disposition: Intermediate Facility Anticipated Discharge Date: Discharge Date: Expected LOS: Initial Reviewer: [id number] Initial Review Date: 11/21/2018 Generated: 12/05/18 10:11 am Comments DCP- Discharge Planning Updated by [id number]: Helder Aguilar on 12/05/18 8:[address] Patient Name: AFSHIN HARVEY Encounter No: [id number] : 1940 Primary Insurance: MEDICARE A & B Anticipated DC Date: Planned Disposition: Intermediate Facility External Planned Provider: [facility], MEDICARE REHAB BED DCP follow-up note: CM RECEIVED ORDER FOR OUTPATIENT DIALYSIS CLINIC ARRANGEMENT AT DISCHARGE. RN OCTAVIO OLGUIN NOTIFIED FAHEEM JOHNSON OF [facility]. CM FAXED UPDATE WITH PHYSICAL THERAPY EVALUATION AND NOTES TO [facility], . [facility] WILL NOT ACCEPT PT IF HE IS TAKING PROCALAMINE OR TPN. [facility] PLANS TO ACCEPT PT BACK FOR SKILLED CARE AT HOSPITAL DISCHARGE. FAX DISCHARGE INFORMATION TO [facility] AT [phone]; NURSE REPORT TO BE CALLED TO [facility], . [facility] TO ARRANGE VAN TRANSPORTATION. Helder Aguilar CASE MANAGEMENT DCP- Discharge Planning Updated by [id number]: Helder Aguilar on 12/03/18 1:[address] Patient Name: AFSHIN HARVEY Encounter No: [id number] : 1940 Primary Insurance: MEDICARE A & B Anticipated DC Date: Planned Disposition: Intermediate Facility External Planned Provider: [facility], MEDICARE REHAB BED DCP follow-up note: CM FAXED UPDATE WITH PHYSICAL THERAPY EVALUATION AND NOTES TO [facility], . [facility] PLANS TO ACCEPT PT BACK FOR SKILLED CARE AT HOSPITAL DISCHARGE. FAX DISCHARGE INFORMATION TO [facility] AT [phone]; NURSE REPORT TO BE CALLED TO [facility], . [facility] TO ARRANGE VAN TRANSPORTATION. Helder Aguilar, CASE MANAGEMENT Appended by Helder Aguilar on 12/03/2018 14:16 BUGGY DRIVER: CM RECEIVED CALL FROM NASREEN OF [facility] WHO INFORMED CM THAT THEY WILL NOT ACCEPT PT IF HE IS TAKING PROCALAMINE OR TPN. NASREEN WOULD LIKE TO BE KEPT INFORMED OF PT'S CONDITION FOR REHAB RETURN TO [facility]. [facility] PLANS TO ACCEPT PT BACK FOR SKILLED CARE AT HOSPITAL DISCHARGE. FAX DISCHARGE INFORMATION TO [facility] AT [phone]; NURSE REPORT TO BE CALLED TO [facility], . [facility] TO ARRANGE VAN TRANSPORTATION. Helder Aguilar, CASE MANAGEMENT DCP- Discharge Planning Updated by [id number]: Helder Aguilar on 11/28/18 12:[address] Patient Name: AFSHIN HARVEY Encounter No: [id number] : 1940 Primary Insurance: MEDICARE A & B Anticipated DC Date: Planned Disposition: Intermediate Facility External Planned Provider: [facility], MEDICARE REHAB BED DCP follow-up note: CM REVIEWED CHART, PAPERWORK IN CHART INDICATES [facility] PRIOR TO HOSPITALIZATION. CM SPOKE TO PT'S SPOUSE IN ROOM TO DISCUSS DISCHARGE PLANNING AND NEEDS. PT WAS AT [facility] FOR REHAB AND IV ANTIBIOTIC ADMINISTRATION SERVICES FOR ABOUT 2 WEEKS PRIOR TO HOSPITAL ADMISSION TO [facility] AND THEN TRANSFER HERE FOR HIGHER LEVEL OF CARE. THEY PLAN FOR PT TO RETURN TO [facility] AT DISCHARGE FOR CONTINUED REHAB SERVICES AND [facility] IS HOLDING BED PER PT'S SPOUSE. CM PROVIDED CUSTODIAL FACILITY LISTING AND SPOUSE SIGNED CHOICE LETTER FOR [facility]. CM FAXED UPDATE TO [facility], . PT WILL REQUIRE PHYSICAL THERAPY EVALUATION AND NOTES FAXED TO [facility] FOR CUSTODIAL FACILITY READMISSION AT HOSPITAL DISCHARGE. CM TO CONTINUE TO FOLLOW AND ASSIST NEEDED. Helder Aguilar, CASE MANAGEMENT DCP- Discharge Planning Updated by [id number]: Perla Wei on 11/21/18 4:[address] Patient Name: AFSHIN HARVEY Admission Status: ER Accout number: [id number] Admission Date: 11-21-2018 : 1940 Admission Diagnosis: Attending: DEEDEE RODRIGUEZ Current LOS: 1 Anticipated DC Date: Planned Disposition: Primary Insurance: MEDICARE A & B Discharge Planning Comments: CM met with patient's daughter (May) at bedside. Patient confused at this time. May states that patient lives at home with his spouse (Lolly) in [place]. She states that Lolly is currently sick that is why she isn't here. May states that patient has been admitted to hospital 3 times since 09/24/18. She stated patient was in Rehab facility trying to increase his strength so he could return home and then was readmitted to [place]. Patient was then transferred here for higher level of care. May states patient did have HH services with [facility] but they was only coming out to draw labs because he was on IV antibiotics. Uncertain of disposition at this time d/t altered mental status. CM will continue to follow and assist as needed with discharge planning. Coin Dealer: Perla Wei DCPIA - Discharge Planning Initial Assessment Updated by [id number]: Perla Wei on 11/21/18 5:25 pm * Is the patient Alert and Oriented? No * How many steps to enter\exit or inside your home? * PCP Dr. oSlis @ [facility] in [place] * Pharmacy [facility] * Preadmission Environment Home with Family * ADLs Independent * Other Equipment Cane, Walker * List name and contact numbers for known caregivers / representatives who currently or will assist patient after discharge: Lolly Harvey - - [phone], May Parks - daughter- [phone] * Verbal permission to speak to the caregivers and representatives has been obtained from the patient. Yes * Community resources currently utilized Home Health * Please name any agencies selected above. [address] for Labs * Additional services required to return to the preadmission environment? No * Can the patient safely return to the preadmission environment? Yes * Has this patient been hospitalized within the prior 30 days at any hospital? Yes Coverage Notice Reviewer: [id number] Jessica Aguilar Notice Issued Date-Time: 11/28/2018 12:45 Notice Type: Patient Choice Letter Notice Delivered To: Family Member Relationship to Patient: Spouse Manager Education Name: VILLA HARVEY Delivery Method: HAND - Hand Delivered Jyoti Days: Prior Verbal Notification: Recipient Understood Notice: Yes Recipient Signature: Yes Med Rec Note Co-signed by Attending: Coverage Notice Comment: [facility] Last DP export: 12/03/18 1:23 p Patient Name: AFSHIN HARVEY Page [id number] at 0912 All edits/amendments must be made on the electronic document DICTATION DATE: 12/05/18910 [employer] ACCOUNT DIRECTOR: LORENE 12/05/18910 RPT#: [id number] DC DATE: STATUS: ADM IN [facility] [address] [place] [address] END OF REPORT
[2018-12-05 12:04] VITALS: BP 134/53
[2018-12-05 17:52] VITALS: BP 114/47
--- NOTE | 2018-12-05 19:30 | NUR ---
RESUMING CARE. PT LAYING IN BED A& SOME CONFUSION , O2 ON @ 2L RT IJ TRIALYSIS SL, DRSG TO RT SIDE NO C/O PAIN OR DISTRESS AT THIS TIME CL IN REACH WILL CONT TO [place]IOR FAMILY @ BEDSIDE
[2018-12-05 22:04] VITALS: BP 131/58
[2018-12-06 01:17] VITALS: BP 107/57
[2018-12-06 06:09] LABS: BASOPHILS 0.6 % (0-2); EOSINOPHILS 0.3 % (0-7); HEMOGLOBIN 9.1 g/dL (13.5-17.5); IMMATURE GRANULOCYTES 0.6 % (0-5); LYMPHOCYTES 11.2 % (15-50); MCH 26.8 pg (26.0-34.0); MCHC 32.5 g/dL (31.0-37.0); MCV 82.6 fL (80.0-100.0); MEAN PLATELET VOLUME 10.5 fL (7.4-10.4); NEUTROPHILS 73.3 % (40-80); PLATELET COUNT 251 10x3/uL (130-400); RBC 3.39 10x6/uL (4.20-6.10); RDW 13.4 % (11.5-14.5); WBC 6.5 10x3/uL (4.8-10.8)
[2018-12-06 06:15] VITALS: BP 122/49
[2018-12-06 06:31] LABS: ANION GAP 18.8 mmol/L (8-16); CALCIUM 8.3 mg/dL (8.5-10.1); CARBON DIOXIDE 23.6 mmol/L (21.0-32.0); CREATININE - SERUM 5.7 mg/dL (0.6-1.3); POTASSIUM - SERUM 4.4 mmol/L (3.5-5.1)
--- NOTE | 2018-12-06 08:03 | NUR ---
RESUMING PT CARE, PT IS ALERT AND ORIENTED X3. SURGERY IN ROOM TO GET HIM FOR HEMISPLIT PLACEMENT. FAMILY IN ROOM, WILL CONTINUE TO MONITOR AND FOLLOW PLAN OF CARE. MA-OP DONE.
--- NOTE | 2018-12-06 09:56 | NUR ---
IN SURGERY AT THIS TIME. WILL CONT. PLAN OF CARE.
--- NOTE | 2018-12-06 09:58 | NUR ---
PT RETURNED FROM SURGERY, BEDSIDE SHIFT REPORTING DONE WITH OG CANTOR. PT IS LAYING IN BED WITH EYES CLOSED, RESPIRATIONS EVEN AND UNLABORED. CALL LIGHT IN REACH. WILL CONTINUE TO MONITOR. VITALS STABLE.
[2018-12-06 11:47] VITALS: BP 125/65
--- NOTE | 2018-12-06 17:10 | MORECARE ---
CASE MANAGEMENT DISCHARGE SUMMARY PATIENT: AFSHIN HARVEY UNIT: [id number] ADM DATE: 11/21/18 AGE: 78 : 39 SEX: M ROOM/BED: D.2111 AUTHOR: EDUAR,VINAY PHYSICIAN: REFERRING PHYSICIAN: DEEDEE RODRIGUEZ DO DATE OF SERVICE: 12/06/18 Discharge Plan Patient Name: AFSHIN HARVEY Facility: [facility]:[place] : 1940 Planned Disposition: Fdc Facility Anticipated Discharge Date: Discharge Date: Expected LOS: Initial Reviewer: [id number] Initial Review Date: 11/21/2018 Generated: 12/06/18 6:10 pm Comments DCP- Discharge Planning Updated by [email or web address]: Helder Aguilar on 12/06/18 4:[address] Patient Name: AFSHIN HARVEY Encounter No: [id number] : 1940 Primary Insurance: MEDICARE A & B Anticipated DC Date: Planned Disposition: Fdc Facility External Planned Provider: [facility], MEDICARE REHAB BED DCP follow-up note: CM SPOKE TO FAHEEM JOHNSON OF [facility], [facility] HAS TTS 2ND SHIFT OR MWF 3RD SHIFT. CM SPOKE TO PT AND SPOUSE IN ROOM REGARDING DIALYSIS SCHEDULE. PT'S SPOUSE REPORTS THEY CAN ASSIST WITH MONDAY TRANSPORT IF NECESSARY AND PREFER THE TTS SCHEDULE AND UNDERSTAND IT WILL DEPEND ON WHAT THE NURSING FACILITY CAN DO. CM CALLED AND SPOKE TO NASREEN OF [facility], THEY WILL ACCEPT PT WITH EITHER SCHEDULE FOR OUTPATIENT DIALYSIS WILL WORK OUT TRANSPORT ARRANGEMENTS. PT AND SPOUSE NOTIFIED. DR. THOMPSON NOTIFIED IN PT ROOM. CM SPOKE TO FAHEEM JOHNSON OF [facility], PT HAS BEEN ACCEPTED FOR OUTPATIENT DIALYSIS: [facility] IN [place], MONDAY, MONDAY, MONDAY, 1100AM FIRST APPOINTMENT FOR OUTPATIENT START IS 12-11-18. [facility] TO ACCEPT PT BACK FOR SKILLED CARE AT HOSPITAL DISCHARGE. FAX DISCHARGE INFORMATION TO [facility] AT [phone]; NURSE REPORT TO BE CALLED TO [facility], . [facility] TO ARRANGE VAN TRANSPORTATION. JOHNY Easley DCP- Discharge Planning Updated by [id number]: Helder Aguilar on 12/05/18 8:[address] Patient Name: AFSHIN HARVEY Encounter No: [id number] : 1940 Primary Insurance: MEDICARE A & B Anticipated DC Date: Planned Disposition: Fdc Facility External Planned Provider: [facility], MEDICARE REHAB BED DCP follow-up note: CM RECEIVED ORDER FOR OUTPATIENT DIALYSIS CLINIC ARRANGEMENT AT DISCHARGE. RN [facility] NOTIFIED FAHEEM JOHNSON OF [facility]. CM FAXED UPDATE WITH PHYSICAL THERAPY EVALUATION AND NOTES TO [facility], . [facility] WILL NOT ACCEPT PT IF HE IS TAKING PROCALAMINE OR TPN. [facility] PLANS TO ACCEPT PT BACK FOR SKILLED CARE AT HOSPITAL DISCHARGE. FAX DISCHARGE INFORMATION TO [facility] AT [phone]; NURSE REPORT TO BE CALLED TO [facility], . [facility] TO ARRANGE VAN TRANSPORTATION. JOHNY Easley DCP- Discharge Planning Updated by [id number]: Helder Aguilar on 12/03/18 1:[address] Patient Name: AFSHIN HARVEY Encounter No: [id number] : 1940 Primary Insurance: MEDICARE A & B Anticipated DC Date: Planned Disposition: Fdc Facility External Planned Provider: [facility], MEDICARE REHAB BED DCP follow-up note: CM FAXED UPDATE WITH PHYSICAL THERAPY EVALUATION AND NOTES TO [facility], . [facility] PLANS TO ACCEPT PT BACK FOR SKILLED CARE AT HOSPITAL DISCHARGE. FAX DISCHARGE INFORMATION TO [facility] AT [phone]; NURSE REPORT TO BE CALLED TO [facility], . [facility] TO ARRANGE VAN TRANSPORTATION. Helder Aguilar, CASE MANAGEMENT Appended by Helder Aguilar on 12/03/2018 14:16 GRAIN FARMER: CM RECEIVED CALL FROM NASREEN OF [facility] WHO INFORMED CM THAT THEY WILL NOT ACCEPT PT IF HE IS TAKING PROCALAMINE OR TPN. NASREEN WOULD LIKE TO BE KEPT INFORMED OF PT'S CONDITION FOR REHAB RETURN TO [facility]. [facility] PLANS TO ACCEPT PT BACK FOR SKILLED CARE AT HOSPITAL DISCHARGE. FAX DISCHARGE INFORMATION TO [facility] AT [phone]; NURSE REPORT TO BE CALLED TO [facility], . [facility] TO ARRANGE VAN TRANSPORTATION. JOHNY Easley MANAGEMENT DCP- Discharge Planning Updated by [id number]: Helder Aguilar on 11/28/18 12:[address] Patient Name: AFSHIN HARVEY Encounter No: [id number] : 1940 Primary Insurance: MEDICARE A & B Anticipated DC Date: Planned Disposition: Fdc Facility External Planned Provider: [facility], MEDICARE REHAB BED DCP follow-up note: CM REVIEWED CHART, PAPERWORK IN CHART INDICATES PT WAS IN [facility] FOR REHAB SERVICES PRIOR TO HOSPITALIZATION. CM SPOKE TO PT'S SPOUSE IN ROOM TO DISCUSS DISCHARGE PLANNING AND NEEDS. PT WAS AT [facility] AND IV ANTIBIOTIC ADMINISTRATION SERVICES FOR ABOUT 2 WEEKS PRIOR TO HOSPITAL ADMISSION TO [facility] AND THEN TRANSFER HERE FOR HIGHER LEVEL OF CARE. THEY PLAN FOR PT TO RETURN TO [facility] AT DISCHARGE FOR CONTINUED REHAB SERVICES AND [facility] IS HOLDING BED PER PT'S SPOUSE. CM PROVIDED SHELTER FACILITY LISTING AND SPOUSE SIGNED CHOICE LETTER FOR [facility]. CM FAXED UPDATE TO [facility], . PT WILL REQUIRE PHYSICAL THERAPY EVALUATION AND NOTES FAXED TO [facility] FOR SHELTER FACILITY READMISSION AT HOSPITAL DISCHARGE. CM TO CONTINUE TO FOLLOW AND ASSIST NEEDED. Helder Aguilar CASE MANAGEMENT DCP- Discharge Planning Updated by [id number]: Perla Eriberto on 11/21/18 4:[address] Patient Name: AFSHIN HARVEY Admission Status: ER Accout number: [id number] Admission Date: 11-21-2018 : 1940 Admission Diagnosis: Attending: DEEDEE RODRIGUEZ Current LOS: 1 Anticipated DC Date: Planned Disposition: Primary Insurance: MEDICARE A & B Discharge Planning Comments: CM met with patient's daughter (May) at bedside. Patient confused at this time. May states that patient lives at home with his spouse (Lolly) in [place]. She states that Lolly is currently sick that is why she isn't here. May states that patient has been admitted to hospital 3 times since 09/24/18. She stated patient was in Rehab facility trying to increase his strength so he could return home and then was readmitted to [facility]. Patient was then transferred here for higher level of care. May states patient did have HH services with [facility] but they was only coming out to draw labs because he was on IV antibiotics. Uncertain of disposition at this time d/t altered mental status. CM will continue to follow and assist as needed with discharge planning. Gas Engine Performance Engineer: Perla Wei DCPIA - Discharge Planning Initial Assessment Updated by [id number]: Perla Wei on 11/21/18 5:25 pm * Is the patient Alert and Oriented? No * How many steps to enter\exit or inside your home? * PCP Dr. Solis @ [facility] in [place] * Pharmacy [facility] * Preadmission Environment Home with Family * ADLs Independent * Other Equipment Cane, Walker * List name and contact numbers for known caregivers / representatives who currently or will assist patient after discharge: Lolly Harvey - - [phone], May Sethider - daughter- [phone] * Verbal permission to speak to the caregivers and representatives has been obtained from the patient. Yes * Community resources currently utilized Home Health * Please name any agencies selected above. [facility] [place] [facility] [place] for Labs * Additional services required to return to the preadmission environment? No * Can the patient safely return to the preadmission environment? Yes * Has this patient been hospitalized within the prior 30 days at any hospital? Yes Coverage Notice Reviewer: [id number] - Helder Aguilar Notice Issued Date-Time: 11/28/2018 12:45 Notice Type: Patient Choice Letter Notice Delivered To: Family Member Relationship to Patient: Spouse Cylinder Grinder Name: VILLA HARVEY Delivery Method: HAND - Hand Delivered Jyoti Days: Prior Verbal Notification: Recipient Understood Notice: Yes Recipient Signature: Yes Med Rec Note Co-signed by Attending: Coverage Notice Comment: [facility] Last DP export: 12/05/18 8:12 a Patient Name: AFSHIN HARVEY Page 12686 at 1710 All edits/amendments must be made on the electronic document DICTATION DATE: 12/06/181709 STAIN DIPPER: LORENE 12/06/181709 RPT#: [id number] DC DATE: STATUS: ADM IN [facility] [address] [place] [address] END OF REPORT
--- NOTE | 2018-12-06 18:22 | NUR ---
PT C/O OF PAIN AT SURGICAL SITE ON RIGHT SHOULDER, PER PETER CHEN HEAD USHER MAY GIVE TYLENOL 500 MG [id number] PRN. ORDER NOTED. CALL LIGHT IN REACH, WILL CONTINUE TO MONITOR.
--- NOTE | 2018-12-06 18:47 | NUR ---
REVIEWED AND AGREE WITH ASSESMENT.
[2018-12-06 20:00] VITALS: BP 100/49
--- NOTE | 2018-12-06 20:00 | NUR ---
INTRODUCED SELF TO PATIENT, AND SON AT BEDSIDE. PATIENT RESTING QUIETLY WITH EYES CLOSED, RESP EVEN AND UNLABORED NO CURRENT C/O OF PAIN OR DISCOMFORT.
[2018-12-07] VITALS (7 sets, daily range): BP systolic 104–128; BP diastolic 46–65
--- NOTE | 2018-12-07 00:08 | NUR ---
PATIENT UP IN THE HALLWAY IN [place], UP IN THE DICTATION AREA. ADVISED PATIENT HE COULDN'T SIT UP HERE. PATIENT UNDERSTOOD, RETURNED TO ROOM.
[2018-12-07 05:24] LABS: ANION GAP 14.9 mmol/L (8-16); CARBON DIOXIDE 25.8 mmol/L (21.0-32.0); CREATININE - SERUM 5.1 mg/dL (0.6-1.3); PHOSPHOROUS 5.6 mg/dL (2.5-4.9); POTASSIUM - SERUM 4.7 mmol/L (3.5-5.1)
[2018-12-07 05:34] LABS: HEMOGLOBIN 8.6 g/dL (13.5-17.5); LYMPHOCYTES 15.6 % (15-50); MCH 27.4 pg (26.0-34.0); MCHC 33.1 g/dL (31.0-37.0); MCV 82.8 fL (80.0-100.0); MEAN PLATELET VOLUME 10.3 fL (7.4-10.4); NEUTROPHILS 68.5 % (40-80); RBC 3.14 10x6/uL (4.20-6.10); RDW 13.3 % (11.5-14.5)
[2018-12-07 05:35] LABS: PLATELET COUNT 169 10x3/uL (130-400)
--- NOTE | 2018-12-07 06:29 | NUR ---
PLACED MORNING MEDS, PATIENT REFUSED INSULIN/CHECKS TWICE THROUGH THIS SHIFT. EXTREMELY CONFUSED, WHEN PLACING PATCH SAID "ARE YOU GOING TO BRAND ME NOW? WHERE IS MY . HOW DID I GET HERE?"
--- NOTE | 2018-12-07 07:15 | NUR ---
RESUMING PT CARE, PT LAYING IN BED ALERT AND ORIENTED, RESPIRATIONS EVEN AND UNLABORED. CALL LIGHT IN REACH, WILL CONTINUE TO MONITOR AND FOLLOW PLAN OF CARE.
--- NOTE | 2018-12-07 09:28 | MORECARE ---
CASE MANAGEMENT DISCHARGE SUMMARY PATIENT: AFSHIN HARVEY UNIT: [id number] ADM DATE: 11/21/18 AGE: 78 : 39 SEX: M ROOM/BED: D.2111 AUTHOR: VINAY WITT PHYSICIAN: REFERRING PHYSICIAN: DEEDEE RODRIGUEZ DO DATE OF SERVICE: 12/07/18 Discharge Plan Patient Name: AFSHIN HARVEY Facility: [facility]:[place] : 1940 Planned Disposition: Fci Facility Anticipated Discharge Date: Discharge Date: Expected LOS: Initial Reviewer: [id number] Initial Review Date: 11/21/2018 Generated: 12/07/18 10:28 am Comments DCP- Discharge Planning Updated by [id number]: Helder Aguilar on 12/07/18 8:[address] Patient Name: AFSHIN HARVEY Encounter No: [id number] : 1940 Primary Insurance: MEDICARE A & B Anticipated DC Date: Planned Disposition: Fci Facility External Planned Provider: [facility], MEDICARE REHAB BED DCP follow-up note: OCTAVIO FAXED UPDATE TO [facility], . PT HAS BEEN ACCEPTED FOR OUTPATIENT DIALYSIS: [facility] IN [place], MONDAY, MONDAY, MONDAY, 1100AM FIRST APPOINTMENT FOR OUTPATIENT START IS 12-11-18. [facility] TO ACCEPT PT BACK FOR SKILLED CARE AT HOSPITAL DISCHARGE. FAX DISCHARGE INFORMATION TO [facility] AT [phone]; NURSE REPORT TO BE CALLED TO [facility], . [facility] TO ARRANGE VAN TRANSPORTATION. Helder Aguilar CASE ROCHELLE DCP- Discharge Planning Updated by [id number]: Helder Aguilar on 12/06/18 4:[address] Patient Name: AFSHIN HARVEY Encounter No: [id number] : 1940 Primary Insurance: MEDICARE A & B Anticipated DC Date: Planned Disposition: Fci Facility External Planned Provider: [facility], MEDICARE REHAB BED DCP follow-up note: OCTAVIO SPOKE TO FAHEEM JOHNSON OF [facility], [facility] DIALYSIS HAS TTS 2ND SHIFT OR MWF 3RD SHIFT. CM SPOKE TO PT AND SPOUSE IN ROOM REGARDING DIALYSIS SCHEDULE. PT'S SPOUSE REPORTS THEY CAN ASSIST WITH MONDAY TRANSPORT IF NECESSARY AND PREFER THE TTS SCHEDULE AND UNDERSTAND IT WILL DEPEND ON WHAT THE NURSING FACILITY CAN DO. CM CALLED AND SPOKE TO NASREEN OF [facility], THEY WILL ACCEPT PT WITH EITHER SCHEDULE FOR OUTPATIENT DIALYSIS WILL WORK OUT TRANSPORT ARRANGEMENTS. PT AND SPOUSE NOTIFIED. DR. THOMPSON NOTIFIED IN PT ROOM. CM SPOKE TO FAHEEM JOHNSON OF [facility], PT HAS BEEN ACCEPTED FOR OUTPATIENT DIALYSIS: [facility] IN [place], MONDAY, MONDAY, MONDAY, 1100AM FIRST APPOINTMENT FOR OUTPATIENT START IS 12-11-18. [facility] TO ACCEPT PT BACK FOR SKILLED CARE AT HOSPITAL DISCHARGE. FAX DISCHARGE INFORMATION TO [facility] AT [phone]; NURSE REPORT TO BE CALLED TO [facility], . [facility] TO ARRANGE VAN TRANSPORTATION. JOHNY Easley MANAGEMENT DCP- Discharge Planning Updated by [id number]: Helder Aguilar on 12/05/18 8:[address] Patient Name: AFSHIN HARVEY Encounter No: [id number] : 1940 Primary Insurance: MEDICARE A & B Anticipated DC Date: Planned Disposition: Fci Facility External Planned Provider: [facility], MEDICARE REHAB BED DCP follow-up note: CM RECEIVED ORDER FOR OUTPATIENT DIALYSIS CLINIC ARRANGEMENT AT DISCHARGE. RN OCTAVIO OLGUIN NOTIFIED FAHEEM JOHNSON OF [facility]. CM FAXED UPDATE WITH PHYSICAL THERAPY EVALUATION AND NOTES TO [facility], . [facility] WILL NOT ACCEPT PT IF HE IS TAKING PROCALAMINE OR TPN. [facility] PLANS TO ACCEPT PT BACK FOR SKILLED CARE AT HOSPITAL DISCHARGE. FAX DISCHARGE INFORMATION TO [facility] AT [phone]; NURSE REPORT TO BE CALLED TO [facility], . [facility] TO ARRANGE VAN TRANSPORTATION. JOHNY Easley DCP- Discharge Planning Updated by [id number]: Helder Aguilar on 12/03/18 1:[address] Patient Name: AFSHIN HARVEY Encounter No: [id number] : 1940 Primary Insurance: MEDICARE A & B Anticipated DC Date: Planned Disposition: Fci Facility External Planned Provider: [facility], MEDICARE REHAB BED DCP follow-up note: CM FAXED UPDATE WITH PHYSICAL THERAPY EVALUATION AND NOTES TO [facility], . [facility] PLANS TO ACCEPT PT BACK FOR SKILLED CARE AT HOSPITAL DISCHARGE. FAX DISCHARGE INFORMATION TO [facility] AT [phone]; NURSE REPORT TO BE CALLED TO [facility], . [facility] TO ARRANGE VAN TRANSPORTATION. Helder Aguilar, CASE MANAGEMENT Appended by Helder Aguilar on 12/03/2018 14:16 RODBUSTER: CM RECEIVED CALL FROM NASREEN OF [facility] WHO INFORMED CM THAT THEY WILL NOT ACCEPT PT IF HE IS TAKING PROCALAMINE OR TPN. NASREEN WOULD LIKE TO BE KEPT INFORMED OF PT'S CONDITION FOR REHAB RETURN TO [facility]. [facility] PLANS TO ACCEPT PT BACK FOR SKILLED CARE AT HOSPITAL DISCHARGE. FAX DISCHARGE INFORMATION TO [facility] AT [phone]; NURSE REPORT TO BE CALLED TO [facility], . [facility] TO ARRANGE VAN TRANSPORTATION. Helder Aguilar, CASE MANAGEMENT DCP- Discharge Planning Updated by [id number]: Helder Aguilar on 11/28/18 12:[address] Patient Name: AFSHIN HARVEY Encounter No: [id number] : 1940 Primary Insurance: MEDICARE A & B Anticipated DC Date: Planned Disposition: Fci Facility External Planned Provider: [facility], MEDICARE REHAB BED DCP follow-up note: CM REVIEWED CHART, PAPERWORK IN CHART INDICATES PT WAS IN [facility] FOR REHAB SERVICES PRIOR TO HOSPITALIZATION. CM SPOKE TO PT'S SPOUSE IN ROOM TO DISCUSS DISCHARGE PLANNING AND NEEDS. [facility] FOR ABOUT 2 WEEKS PRIOR TO HOSPITAL ADMISSION TO [facility] AND THEN TRANSFER HERE FOR HIGHER LEVEL OF CARE. THEY PLAN FOR PT TO RETURN TO [facility] AT DISCHARGE FOR CONTINUED REHAB SERVICES [facility] PT'S SP[facility]SE. CM PROVIDED SENIOR LIVING FACILITY LISTING AND SPOUSE SIGNED [facility]. CM FAXED UPDATE TO [facility], . PT WILL REQUIRE PHYSICAL THERAPY EVALUATION AND NOTES FAXED TO [facility] FOR SENIOR LIVING FACILITY READMISSION AT HOSPITAL DISCHARGE. CM TO CONTINUE TO FOLLOW AND ASSIST NEEDED. Helder Aguilar, CASE MANAGEMENT DCP- Discharge Planning Updated by [id number]: Perla Wei on 11/21/18 4:[address] Patient Name: AFSHIN HARVEY Admission Status: ER Accout number: [id number] Admission Date: 11-21-2018 : 1940 Admission Diagnosis: Attending: DEEDEE RODRIGUEZ Current LOS: 1 Anticipated DC Date: Planned Disposition: Primary Insurance: MEDICARE A & B Discharge Planning Comments: CM met with patient's daughter (May) at bedside. Patient confused at this time. May states that patient lives at home with his spouse (Lolly) in [place]. She states that Lolly is currently sick that is why she isn't here. May states that patient has been admitted to hospital 3 times since 09/24/18. She stated patient was in Rehab facility trying to increase his strength so he could return home and then was readmitted to [facility]. Patient was then transferred here for higher level of care. May states patient did have services with [facility] but they was only coming out to draw labs because he was on IV antibiotics. Uncertain of disposition at this time d/t altered mental status. CM will continue to follow and assist as needed with discharge planning. Hob Grinder: Perla Wie DCPIA - Discharge Planning Initial Assessment Updated by [email or web address]: Perla Wei on 11/21/18 5:25 pm * Is the patient Alert and Oriented? No * How many steps to enter\exit or inside your home? * PCP Dr. Solis @ [facility] in [place] * Pharmacy [facility] * Preadmission Environment Home with Family * ADLs Independent * Other Equipment Cane, Walker * List name and contact numbers for known caregivers / representatives who currently or will assist patient after discharge: Lolly Harvey - - [phone], May Parks - daughter- [phone] * Verbal permission to speak to the caregivers and representatives has been obtained from the patient. Yes * Community resources currently utilized Home Health * Please name any agencies selected above. [address] for Labs * Additional services required to return to the preadmission environment? No * Can the patient safely return to the preadmission environment? Yes * Has this patient been hospitalized within the prior 30 days at any hospital? Yes Coverage Notice Reviewer: [id number] Jessica Aguilar Notice Issued Date-Time: 11/28/2018 12:45 Notice Type: Patient Choice Letter Notice Delivered To: Family Member Relationship to Patient: Spouse Chemical Manager Name: VILLA HARVEY Delivery Method: HAND - Hand Delivered Jyoti Days: Prior Verbal Notification: Recipient Understood Notice: Yes Recipient Signature: Yes Med Rec Note Co-signed by Attending: Coverage Notice Comment: [facility] Last DP export: 12/06/18 4:10 p Patient Name: AFSHIN HARVEY Page 11552 at 0928 All edits/amendments must be made on the electronic document DICTATION DATE: 12/07/18926 MANAGER NEW PRODUCT: LORENE 12/07/18926 RPT#: [id number] DC DATE: STATUS: ADM IN [facility] [address] [place] [address] END OF REPORT
--- NOTE | 2018-12-07 10:33 | NUR ---
Dialysis Coordinator: Patient has been accepted to [facility] on a TTS @ 11:00 schedule. He can start in-center on Monday, 12/11 @ 11:00am. АЛЕКСАНДР THORPE.
--- NOTE | 2018-12-07 11:32 | NUR ---
UP IN CHAIR WITH CALL LIGHT IN REACH. AT BS. WILL CONT. PLAN OF CARE.
--- NOTE | 2018-12-07 13:12 | NUR ---
REVIEWED AND AGREE WITH ASSESMENT.
--- NOTE | 2018-12-07 13:53 | OP ---
PATIENT NAME: AFSHIN NORIEGA MEDICAL RECORD: [id number] :[birth year] LOCATION:D.M2 D.2111 ADMISSION DATE:11/21/18 SURGEON: ADOLPH CARRION MD DATE OF OPERATION: 12/06/2018 PREOPERATIVE DIAGNOSIS: End-stage renal disease without chronic access for hemodialysis. POSTOPERATIVE DIAGNOSIS: End-stage renal disease without chronic access for hemodialysis. PROCEDURES: Placement of 19-cm HemoSplit catheter, which is a tunneled cuffed hemodialysis catheter, under fluoroscopic guidance. No radiologist was present for this procedure. Fluoroscopic images were obtained and are interpreted by the surgeon, the interpretation is listed below. The risks, possible complications and alternatives to procedure were explained to the patient. He elects to proceed. OPERATIVE COURSE: The patient was conveyed to the operating room electively on 12/06/2018. General anesthesia was induced by anesthesia staff. The right neck and right chest were sterilely prepped and draped. I percutaneously accessed the right internal jugular vein in an antegrade fashion. A guidewire was passed easily. This was visualized under fluoroscopy. I then dilated over the guidewire. A dilator sheath was advanced. A counterincision was accomplished in the right anterior superior infraclavicular chest. I tunneled a 19-cm HemoSplit catheter from the chest incision to the neck incision. The dilator and wire were removed. Through the sheath, I advanced the tips of HemoSplit catheter. I then removed the sheath. I pulled on the HemoSplit catheter in order to seat the catheter into the subcutaneous tissues. An image was obtained over the right lung apex. There was no apparent kinking or twisting of the HemoSplit catheter. No radiographic evidence of complication. Another image was obtained over the mediastinum. The tip of the HemoSplit catheter appeared to be in the superior vena cava. The neck incision was closed with an interrupted intracuticular 3-0 Vicryls. The flange of the HemoSplit catheter was sutured to the underlying skin with 2-0 nylon. A pursestring suture was then placed around the Trialysis catheter. The Trialysis catheter was removed and I cinched down on the pursestring suture. Hemostasis was immediate. I then flushed out both lumens of the HemoSplit catheter with the appropriate amount of concentrated heparin. Sterile dressings were applied. TRANSINT:[id number] Voice Confirmation ID: [id number] DOCUMENT ID: [id number] ADOLPH CARRION MD at 1353 CC: RONNIE MOCTEZUMA MD and DEEDEE RODRIGUEZ DO [id number] DICTATION DATE: 12/06/18 0956 LEATHER WORKER: 12/06/18 1108 ADM IN [place] [id number] [place] [address]
--- NOTE | 2018-12-07 17:18 | MORECARE ---
CASE MANAGEMENT DISCHARGE SUMMARY PATIENT: AFSHIN HAVREY UNIT: [id number] ADM DATE: 11/21/18 AGE: 78 : 39 SEX: M ROOM/BED: D.2111 AUTHOR: EDUARDOC PHYSICIAN: REFERRING PHYSICIAN: DEEDEE RODRIGUEZ DO DATE OF SERVICE: 12/07/18 Discharge Plan Patient Name: AFSHIN HARVEY Facility: [facility]:[place] : 1940 Planned Disposition: Long Term Facility Anticipated Discharge Date: 12/08/18 Discharge Date: Expected LOS: 17 Initial Reviewer: [id number] Initial Review Date: 11/21/2018 Generated: 12/07/18 6:18 pm Comments DCP- Discharge Planning Updated by [id number]: Helder Aguilar on 12/07/18 4:[address] Patient Name: AFSHIN HARVEY Encounter No: [id number] : 1940 Primary Insurance: MEDICARE A & B Anticipated DC Date: 12-08-2018 Planned Disposition: Long Term Facility External Planned Provider: [facility], MEDICARE REHAB BED DCP follow-up note: CM RECEIVED CALL FROM GILSON, PT'S DAUGHTER, WHO REPORTS SPEAKING TO RENAL NURSE HEIDE WHO INFORMED THEM THAT PT WILL DISCHARGE TO REHAB TOMORROW AFTER DIALYSIS, [facility] IS AWARE AND WILL ACCEPT; FAMILY WILL TRANSPORT TO REHAB AT DISCHARGE TOMORROW. GILSON INFORMED CM THAT FACILITY HAS REQUESTED DISCHARGE INFORMATION BE FAXED TODAY IF POSSIBLE SO THEY CAN WORK ON ADMISSION PAPERWORK. CM NOTIFIED CLEMENTE CHEN WHO INFORMED CM THAT SHE WILL COMPLETE THE DISCHARGE. CM MET WITH PT, SPOUSE AND DAUGHTER IN ROOM, ALL IN AGREEMENT WITH PLAN FOR DISCHARGE TOMORROW TO [facility] FOR [facility]. IMPORTANT MESSAGE FROM MEDICARE PROVIDED AND EXPLAINED. FOR DISCHARGE, FAX DISCHARGE INFORMATION TO [facility] AT [phone]; NURSE REPORT TO BE CALLED TO [facility], . PT'S FAMILY TO TRANSPORT TO [facility] IN [place]. Helder Aguilar, CASE MANAGEMENT DCP- Discharge Planning Updated by [email or web address]: Helder Aguilar on 12/07/18 8:[address] Patient Name: AFSHIN HARVEY Encounter No: [id number] : 1940 Primary Insurance: MEDICARE A & B Anticipated DC Date: Planned Disposition: Long Term Facility External Planned Provider: [facility], MEDICARE REHAB BED DCP follow-up note: CM FAXED UPDATE TO [facility], . PT HAS BEEN ACCEPTED FOR OUTPATIENT DIALYSIS: [facility], MONDAY, MONDAY, MONDAY, 1100AM FIRST APPOINTMENT FOR [facility]PATIENT START IS 12-11-18. [facility] BACK FOR SKILLED CARE AT HOSPITAL DISCHARGE. FAX DISCHARGE INFORMATION TO [facility] AT [phone]; NURSE REPORT TO BE CALLED TO [facility], . [facility] TO ARRANGE VAN TRANSPORTATION. Helder Aguilar, CASE MANAGEMENT DCP- Discharge Planning Updated by [email or web address]: Helder Aguilar on 12/06/18 4:[address] Patient Name: AFSHIN HARVEY Encounter No: [id number] : 1940 Primary Insurance: MEDICARE A & B Anticipated DC Date: Planned Disposition: Long Term Facility External Planned Provider: [facility], MEDICARE REHAB BED DCP follow-up note: CM SPOKE TO FAHEEM JOHNSON OF [facility], [facility] HAS TTS 2ND SHIFT OR MWF 3RD SHIFT. CM SPOKE TO PT AND SPOUSE IN ROOM REGARDING DIALYSIS SCHEDULE. PT'S SPOUSE REPORTS THEY CAN ASSIST WITH MONDAY TRANSPORT IF NECESSARY AND PREFER THE TTS SCHEDULE AND UNDERSTAND IT WILL DEPEND ON WHAT THE NURSING FACILITY CAN DO. CM CALLED AND SPOKE TO NASREEN OF [facility], THEY WILL ACCEPT PT WITH EITHER SCHEDULE FOR OUTPATIENT DIALYSIS WILL WORK OUT TRANSPORT ARRANGEMENTS. PT AND SPOUSE NOTIFIED. DR. THOMPSON NOTIFIED IN PT ROOM. CM SPOKE TO FAHEEM JOHNSON OF [facility], PT HAS BEEN ACCEPTED FOR OUTPATIENT DIALYSIS: [facility] IN [place], MONDAY, MONDAY, MONDAY, 1100AM FIRST APPOINTMENT FOR OUTPATIENT START IS 12-11-18. [facility] PT BACK FOR SKILLED CARE AT HOSPITAL DISCHARGE. FAX DISCHARGE INFORMATION TO [facility] AT [phone]; NURSE REPORT TO BE CALLED TO [facility], . [facility] TO ARRANGE VAN TRANSPORTATION. JOHNY Easley DCP- Discharge Planning Updated by [id number]: Helder Aguilar on 12/05/18 8:[address] Patient Name: AFSHIN HARVEY Encounter No: [id number] : 1940 Primary Insurance: MEDICARE A & B Anticipated DC Date: Planned Disposition: Long Term Facility External Planned Provider: [facility], MEDICARE REHAB BED DCP follow-up note: CM RECEIVED ORDER FOR OUTPATIENT DIALYSIS CLINIC ARRANGEMENT AT DISCHARGE. RN OCTAVIO OLGUIN NOTIFIED FAHEEM JOHNSON OF [facility]. CM FAXED UPDATE WITH PHYSICAL THERAPY EVALUATION AND NOTES TO [facility], . [facility] WILL NOT ACCEPT PT IF HE IS TAKING PROCALAMINE OR TPN. [facility] PLANS TO ACCEPT PT BACK FOR SKILLED CARE AT HOSPITAL DISCHARGE. FAX DISCHARGE INFORMATION TO [facility] AT [phone]; NURSE REPORT TO BE CALLED TO [facility], . [facility] TO [facility]RANGE VAN TRANSPORTATION. JOHNY Easley DCP- Discharge Planning Updated by [email or web address]: Helder Aguilar on 12/03/18 1:[address] Patient Name: AFSHIN HARVEY Encounter No: [id number] : 1940 Primary Insurance: MEDICARE A & B Anticipated DC Date: Planned Disposition: Long Term Facility External Planned Provider: [facility], MEDICARE REHAB BED DCP follow-up note: CM FAXED UPDATE WITH PHYSICAL THERAPY EVALUATION AND NOTES TO [facility], . [facility] PLANS TO ACCEPT PT BACK FOR SKILLED CARE AT HOSPITAL DISCHARGE. FAX DISCHARGE INFORMATION TO [facility] AT [phone]; NURSE REPORT TO BE CALLED TO [facility], . [facility] TO ARRANGE VAN TRANSPORTATION. Helder Aguilar CASE MANAGEMENT Appended by Helder Aguilar on 12/03/2018 14:16 PARALEGAL ASSISTANT: CM RECEIVED CALL FROM NASREEN OF [facility] WHO INFORMED CM THAT THEY WILL NOT ACCEPT PT IF HE IS TAKING PROCALAMINE OR TPN. NASREEN WOULD LIKE TO BE KEPT INFORMED OF PT'S CONDITION FOR REHAB RETURN TO [facility]. [facility] PLANS TO ACCEPT PT BACK FOR SKILLED CARE AT HOSPITAL DISCHARGE. FAX DISCHARGE INFORMATION TO [facility] AT [phone]; NURSE REPORT TO BE CALLED TO [facility], . [facility] TO [facility]ANGE VAN TRANSPORTATION. JOHNY Easley MANAGEMENT DCP- Discharge Planning Updated by [id number]: Helder Aguilar on 11/28/18 12:[address] Patient Name: AFSHIN HARVEY Encounter No: [id number] : 1940 Primary Insurance: MEDICARE A & B Anticipated DC Date: Planned Disposition: Long Term Facility External Planned Provider: [facility], MEDICARE REHAB BED DCP follow-up note: CM REVIEWED CHART, PAPERWORK IN CHART INDICATES PT WAS IN [facility] FOR REHAB SERVICES PRIOR TO HOSPITALIZATION. CM SPOKE TO PT'S SPOUSE IN ROOM TO DISCUSS DISCHARGE PLANNING AND NEEDS. PT WAS AT [facility] FOR REHAB AND IV ANTIBIOTIC ADMINISTRATION SERVICES FOR ABOUT 2 WEEKS PRIOR TO HOSPITAL ADMISSION TO [facility] AND THEN TRANSFER HERE FOR HIGHER LEVEL OF CARE. THEY PLAN FOR PT TO RETURN TO [facility] AT DISCHARGE FOR CONTINUED REHAB SERVICES AND [facility] IS HOLDING BED PER PT'S SPOUSE. CM PROVIDED HALFWAY FACILITY LISTING AND SPOUSE SIGNED CHOICE LETTER FOR [facility]. CM FAXED UPDATE TO [facility], . PT WILL REQUIRE PHYSICAL THERAPY EVALUATION AND NOTES FAXED TO [facility] FOR HALFWAY FACILITY READMISSION AT HOSPITAL DISCHARGE. CM TO CONTINUE TO FOLLOW AND ASSIST NEEDED. Helder Aguilar CASE MANAGEMENT DCP- Discharge Planning Updated by [id number]: Perla Wei on 11/21/18 4:[address] Patient Name: AFSHIN HARVEY Admission Status: ER Accout number: [id number] Admission Date: 11-21-2018 : 1940 Admission Diagnosis: Attending: DEEDEE RODRIGUEZ Current LOS: 1 Anticipated DC Date: Planned Disposition: Primary Insurance: MEDICARE A & B Discharge Planning Comments: CM met with patient's daughter (May) at bedside. Patient confused at this time. May states that patient lives at home with his spouse (Lolly) in [place]. She states that Lolly is currently sick that is why she isn't here. May states that patient has been admitted to hospital 3 times since 09/24/18. She stated patient was in Rehab facility trying to increase his strength so he could return home and then was readmitted to [facility]. Patient was then transferred here for higher level of care. May states patient did have HH services with [facility] but they was only coming out to draw labs because he was on IV antibiotics. Uncertain of disposition at this time d/t altered mental status. CM will continue to follow and assist as needed with discharge planning. Help Desk Administrator: Perla Wei DCPIA - Discharge Planning Initial Assessment Updated by [email or web address]: Perla Wei on 11/21/18 5:25 pm * Is the patient Alert and Oriented? No * How many steps to enter\exit or inside your home? * PCP Dr. Solis @ [facility] in [place] * Pharmacy [facility] * Preadmission Environment Home with Family * ADLs Independent * Other Equipment Cane, Walker * List name and contact numbers for known caregivers / representatives who currently or will assist patient after discharge: Lolly Harvey - - [phone], May Parks - daughter- [phone] * Verbal permission to speak to the caregivers and representatives has been obtained from the patient. Yes * Community resources currently utilized Home Health * Please name any agencies selected above. [facility] [place] for Labs * Additional services required to return to the preadmission environment? No * Can the patient safely return to the preadmission environment? Yes * Has this patient been hospitalized within the prior 30 days at any hospital? Yes Coverage Notice Reviewer: [id number] Jessica Aguilar Notice Issued Date-Time: 11/28/2018 12:45 Notice Type: Patient Choice Letter Notice Delivered To: Family Member Relationship to Patient: Spouse President Celebrity Acquistion Name: VILLA HARVEY Delivery Method: HAND - Hand Delivered Jyoti Days: Prior Verbal Notification: Recipient Understood Notice: Yes Recipient Signature: Yes Med Rec Note Co-signed by Attending: Coverage Notice Comment: [facility] Reviewer: [id number] Aguilar Notice Issued Date-Time: 12/07/2018 17:00 Notice Type: IM Discharge Notice Notice Delivered To: Patient Relationship to Patient: President Celebrity Acquistion Name: Delivery Method: HAND - Hand Delivered Jyoti Days: Prior Verbal Notification: Recipient Understood Notice: Yes Recipient Signature: Yes Med Rec Note Co-signed by Attending: Coverage Notice Comment: Last DP export: 12/07/18 8:28 a Patient Name: AFSHIN HARVEY Page [id number] at 1718 All edits/amendments must be made on the electronic document DICTATION DATE: 12/07/181717 CYCLE SPECIALIST: LORENE 12/07/181717 RPT#: [id number] DC DATE: STATUS: ADM IN [facility] [address] [place] [address] END OF REPORT
--- NOTE | 2018-12-07 19:40 | NUR ---
RESUMING CARE, PT SITTING UP ON THE SIDE OF THE BED ALERT O2 ON @ 2L BREATH SOUNDS EVEN , HEMOSPLIT TO RT CHEST PT C/O HIP PAIN TYLENOL 600MG GIVEN , NO OTHER SIGNS OF DISTRESS AT THIS TIME CALL LIGHT IN REACH WILL CONT TO MONITOR
--- NOTE | 2018-12-08 01:26 | NUR ---
VSS. PT RESTING WITH EYES CLOSED. RESP EVEN AND REGULAR. SR UP X2, CALL LIGHT WITHIN REACH.
[2018-12-08 03:55] VITALS: BP 119/51
--- NOTE | 2018-12-08 07:00 | NUR ---
RECEIVED BEDSIDE SHIFT REPORT. ASSUMED CARE OF PATIENT. CALL LIGHT WITHIN REACH. FAMILY AT BEDSIDE. PATIENT ALERT/ORIENTED. PATIENT AND FAMILY STATE THAT PATIENT IS GOING BACK TO REHAB IN [place] AFTER DIALYSIS THIS AM. DENIES NEEDS. NO DISTRESS.
--- NOTE | 2018-12-08 07:49 | NUR ---
DRESSING TO RIGHT FLANK REMOVED AND BANDAID PLACED. NO BRUISING, BLEEDING NOTED. FAMILY AT BEDSIDE. NO DISTRESS. CALL LIGHT WITHIN REACH.
--- NOTE | 2018-12-08 08:57 | NUR ---
FSBS 251. 10 UNITS HUMULIN ADMINISTERED PER SLIDING SCALE. NO DISTRESS.
[2018-12-08 09:17] VITALS: BP 124/46
--- NOTE | 2018-12-08 09:30 | NUR ---
PATIENT LEFT UNIT VIA WHEELCHAIR FOR DIALYSIS AT THIS TIME. NO DISTRESS.
[2018-12-08] MEDS ORDERED: Nystatin Oral Susp [ PO (11:14)
[2018-12-08] MEDS ORDERED: CATAPRES TTS-3 TRANSDERM (11:15)
[2018-12-08] MEDS ORDERED: HUMULIN R100 U/ML SC (11:17)
--- NOTE | 2018-12-08 12:10 | NUR ---
ATTEMPTING TO CALL REPORT TO [facility] AND THEY DO NOT KNOW ANYTHING ABOUT THE PATIENT COMING THERE TODAY AND THEY ARE TRYING TO CALL SOMEONE TO FIGURE OUT IF THEY ARE TAKING THE PATIENT BACK. SITTING ON HOLD AT THIS TIME.
--- NOTE | 2018-12-08 12:16 | NUR ---
REPORT [phone].
--- NOTE | 2018-12-08 12:18 | NUR ---
PATIENT RETURNED FROM DIALYSIS AT THIS TIME. NO DISTRESS.
--- NOTE | 2018-12-08 12:34 | NUR ---
DISCHARGE INSTRUCTIONS PROVIDED TO FAMILY AND PATIENT. VERBALIZED UNDERSTANDING OF ALL INSTURCTIONS PROVIDED. PATIENT GETTING DRESSED WITH ASSISTANCE FROM AT THIS TIME AND WILL BE READY TO LEAVE UNIT. PATIENT HAS CONSUMED NOON MEAL.
--- NOTE | 2018-12-08 13:04 | NUR ---
PATIENT LEFT UNIT VIA WHEELCHAIR AT THIS TIME. DISCHARGED TO [facility] VIA PRIVATE VEHICLE WITH FAMILY. PATIENT HAD ALL PERSONAL BELONGINGS WHEN LEAVING UNIT. NO DISTRESS UPON LEAVING UNIT.
--- NOTE | 2018-12-12 08:24 | MORECARE ---
CASE MANAGEMENT DISCHARGE SUMMARY PATIENT: AFSHIN HARVEY UNIT: [id number] ADM DATE: 11/21/18 AGE: 78 : 39 SEX: M ROOM/BED: D.2111 AUTHOR: VINAY WITT PHYSICIAN: REFERRING PHYSICIAN: DEEDEE RODRIGUEZ DO DATE OF SERVICE: 12/12/18 Discharge Plan Patient Name: AFSHIN HARVEY Facility: [facility]:[place] : 1940 Planned Disposition: Halfway Facility Anticipated Discharge Date: 12/08/18 Discharge Date: 12/08/2018 Expected LOS: 17 Initial Reviewer: [id number] Initial Review Date: 11/21/2018 Generated: 12/12/18 9:23 am Comments DCP- Discharge Planning Updated by [email or web address]: Helder Aguilar on 12/07/18 4:[address] Patient Name: AFSHIN HARVEY Encounter No: [id number] : 1940 Primary Insurance: MEDICARE A & B Anticipated DC Date: 12-08-2018 Planned Disposition: Halfway Facility External Planned Provider: [facility], MEDICARE REHAB BED DCP follow-up note: CM RECEIVED CALL FROM GILSON, PT'S DAUGHTER, WHO REPORTS SPEAKING TO RENAL NURSE HEIDE WHO INFORMED THEM THAT PT WILL DISCHARGE TO REHAB TOMORROW AFTER DIALYSIS, [facility] IS AWARE AND WILL ACCEPT; FAMILY WILL TRANSPORT TO REHAB AT DISCHARGE TOMORROW. GILSON INFORMED CM THAT FACILITY HAS REQUESTED DISCHARGE INFORMATION BE FAXED TODAY IF POSSIBLE SO THEY CAN WORK ON ADMISSION PAPERWORK. CM NOTIFIED CLEMENTE CHEN WHO INFORMED CM THAT SHE WILL COMPLETE THE DISCHARGE. CM MET WITH PT, SPOUSE AND DAUGHTER IN ROOM, ALL IN AGREEMENT WITH PLAN FOR DISCHARGE TOMORROW TO [facility] FOR [facility]. IMPORTANT MESSAGE FROM MEDICARE PROVIDED AND EXPLAINED. FOR DISCHARGE, FAX DISCHARGE INFORMATION TO [facility] AT [phone]; NURSE REPORT TO BE CALLED TO [facility], . PT'S FAMILY TO TRANSPORT TO [facility] IN [place]. Helder Aguilar CASE MANAGEMENT DCP- Discharge Planning Updated by [id number]: Helder Aguilar on 12/07/18 8:[address] Patient Name: AFSHIN HARVEY Encounter No: [id number] : 1940 Primary Insurance: MEDICARE A & B Anticipated DC Date: Planned Disposition: Halfway Facility External Planned Provider: [facility], MEDICARE REHAB BED DCP follow-up note: CM FAXED UPDATE TO [facility], . PT HAS BEEN ACCEPTED FOR OUTPATIENT DIALYSIS: [facility] [place], MONDAY, MONDAY, MONDAY, 1100AM FIRST APPOINTMENT FOR OUTPATIENT START IS 12-11-18. [facility] FOR SKILLED CARE AT HOSPITAL DISCHARGE. FAX DISCHARGE INFORMATION TO [facility] AT [phone]; NURSE REPORT TO BE CALLED TO [facility], . [facility] TO ARRANGE VAN TRANSPORTATION. Helder Aguilar, CASE MANAGEMENT DCP- Discharge Planning Updated by [id number]: Helder Aguilar on 12/06/18 4:[address] Patient Name: AFSHIN HARVEY Encounter No: [id number] : 1940 Primary Insurance: MEDICARE A & B Anticipated DC Date: Planned Disposition: Halfway Facility External Planned Provider: [facility], MEDICARE REHAB BED DCP follow-up note: CM SPOKE TO FAHEEM JOHNSON OF [facility], [facility] HAS TTS 2ND SHIFT OR MWF 3RD SHIFT. CM SPOKE TO PT AND SPOUSE IN ROOM REGARDING DIALYSIS SCHEDULE. PT'S SPOUSE REPORTS THEY CAN ASSIST WITH MONDAY TRANSPORT IF NECESSARY AND PREFER THE TTS SCHEDULE AND UNDERSTAND IT WILL DEPEND ON WHAT THE NURSING FACILITY CAN DO. CM CALLED AND SPOKE TO NASREEN OF [facility], THEY WILL ACCEPT PT WITH EITHER SCHEDULE FOR OUTPATIENT DIALYSIS WILL WORK OUT TRANSPORT ARRANGEMENTS. PT AND SPOUSE NOTIFIED. DR. THOMPSON NOTIFIED IN PT ROOM. CM SPOKE TO FAHEEM JOHNSON OF [facility], PT HAS BEEN ACCEPTED FOR OUTPATIENT DIALYSIS: [facility] IN [place], MONDAY, MONDAY, MONDAY, 1100AM FIRST APPOINTMENT FOR OUTPATIENT START IS 12-11-18. [facility] FOR SKILLED CARE AT HOSPITAL DISCHARGE. FAX DISCHARGE INFORMATION TO [facility] AT [phone]; NURSE REPORT TO BE CALLED TO [facility], . [facility] TO ARRANGE VAN TRANSPORTATION. JOHNY Easley DCP- Discharge Planning Updated by [id number]: Helder Aguilar on 12/05/18 8:[address] Patient Name: AFSHIN HARVEY Encounter No: [id number] : 1940 Primary Insurance: MEDICARE A & B Anticipated DC Date: Planned Disposition: Halfway Facility External Planned Provider: [facility], MEDICARE REHAB BED DCP follow-up note: CM RECEIVED ORDER FOR OUTPATIENT DIALYSIS CLINIC ARRANGEMENT AT DISCHARGE. RN OCTAVIO OLGUIN NOTIFIED FAHEEM JOHNSON OF [facility]. CM FAXED UPDATE WITH PHYSICAL THERAPY EVALUATION AND NOTES TO [facility], . [facility] WILL NOT ACCEPT PT IF HE IS TAKING PROCALAMINE OR TPN. [facility] PLANS TO ACCEPT PT BACK FOR SKILLED CARE AT HOSPITAL DISCHARGE. FAX DISCHARGE INFORMATION TO [facility] AT [phone]; NURSE REPORT TO BE CALLED TO [facility], . [facility] TO ARRANGE VAN TRANSPORTATION. JOHNY Easley DCP- Discharge Planning Updated by [id number]: Helder Aguilar on 12/03/18 1:[address] Patient Name: AFSHIN HARVEY Encounter No: [id number] : 1940 Primary Insurance: MEDICARE A & B Anticipated DC Date: Planned Disposition: Halfway Facility External Planned Provider: [facility], MEDICARE REHAB BED DCP follow-up note: CM FAXED UPDATE WITH PHYSICAL THERAPY EVALUATION AND NOTES TO [facility], . [facility] PLANS TO ACCEPT PT BACK FOR SKILLED CARE AT HOSPITAL DISCHARGE. FAX DISCHARGE INFORMATION TO [facility] AT [phone]; NURSE REPORT TO BE CALLED TO [facility], . [facility] TO ARRANGE VAN TRANSPORTATION. Helder Aguilar CASE MANAGEMENT Appended by Helder Aguilar on 12/03/2018 14:16 DIRECT MAIL MARKETER: CM RECEIVED CALL FROM NASREEN OF [facility] WHO INFORMED CM THAT THEY WILL NOT ACCEPT PT IF HE IS TAKING PROCALAMINE OR TPN. NASREEN WOULD LIKE TO BE KEPT INFORMED OF PT'S CONDITION FOR REHAB RETURN TO [facility]. [facility] PLANS TO ACCEPT PT BACK FOR SKILLED CARE AT HOSPITAL DISCHARGE. FAX DISCHARGE INFORMATION TO [facility] AT [phone]; NURSE REPORT TO BE CALLED TO [facility], . [facility] TO ARRANGE VAN TRANSPORTATION. JOHNY Easley MANAGEMENT DCP- Discharge Planning Updated by [email or web address]: Helder Aguilar on 11/28/18 12:[address] Patient Name: AFSHIN HARVEY Encounter No: [id number] : 1940 Primary Insurance: MEDICARE A & B Anticipated DC Date: Planned Disposition: Halfway Facility External Planned Provider: [facility], MEDICARE REHAB BED DCP follow-up note: CM REVIEWED CHART, PAPERWORK IN CHART INDICATES PT WAS IN [facility] FOR REHAB SERVICES PRIOR TO HOSPITALIZATION. CM SPOKE TO PT'S SPOUSE IN ROOM TO DISCUSS DISCHARGE PLANNING AND NEEDS. PT WAS AT [facility] FOR REHAB AND IV ANTIBIOTIC ADMINISTRATION SERVICES FOR ABOUT 2 WEEKS PRIOR TO HOSPITAL ADMISSION TO [facility] AND THEN TRANSFER HERE FOR HIGHER LEVEL OF CARE. THEY PLAN FOR PT TO RETURN TO [facility] AT DISCHARGE FOR CONTINUED REHAB SERVICES AND [facility] IS HOLDING BED PER PT'S SPOUSE. CM PROVIDED CUSTODIAL FACILITY LISTING AND SPOUSE SIGNED CHOICE LETTER FOR [facility]. CM FAXED UPDATE TO [facility], . PT WILL REQUIRE PHYSICAL THERAPY EVALUATION AND NOTES FAXED TO [facility] FOR CUSTODIAL FACILITY READMISSION AT HOSPITAL DISCHARGE. CM TO CONTINUE TO FOLLOW AND ASSIST NEEDED. Helder Aguilar CASE MANAGEMENT DCP- Discharge Planning Updated by [id number]: Perla Wei on 11/21/18 4:[address] Patient Name: AFSHIN HARVEY Admission Status: ER Accout number: [id number] Admission Date: 11-21-2018 : 1940 Admission Diagnosis: Attending: DEEDEE RODRIGUEZ Current LOS: 1 Anticipated DC Date: Planned Disposition: Primary Insurance: MEDICARE A & B Discharge Planning Comments: CM met with patient's daughter (May) at bedside. Patient confused at this time. May states that patient lives at home with his spouse (Lolly) in [place]. She states that Lolly is currently sick that is why she isn't here. May states that patient has been admitted to hospital 3 times since 09/24/18. She stated patient was in Rehab facility trying to increase his strength so he could return home and then was readmitted to [place]. Patient was then transferred here for higher level of care. May states patient did have HH services with [facility] but they was only coming out to draw labs because he was on IV antibiotics. Uncertain of disposition at this time d/t altered mental status. CM will continue to follow and assist as needed with discharge planning. Tracer Bullet Section Supervisor: Peral Wei DCPIA - Discharge Planning Initial Assessment Updated by [id number]: Perla Wei on 11/21/18 5:25 pm * Is the patient Alert and Oriented? No * How many steps to enter\exit or inside your home? * PCP Dr. Solis @ [facility] in [place] * Pharmacy [facility] * Preadmission Environment Home with Family * ADLs Independent * Other Equipment Cane, Walker * List name and contact numbers for known caregivers / representatives who currently or will assist patient after discharge: Lolly Harvey - - [phone], May Parks - daughter- [phone] * Verbal permission to speak to the caregivers and representatives has been obtained from the patient. Yes * Community resources currently utilized Home Health * Please name any agencies selected above. [facility] [place] for Labs * Additional services required to return to the preadmission environment? No * Can the patient safely return to the preadmission environment? Yes * Has this patient been hospitalized within the prior 30 days at any hospital? Yes Coverage Notice Reviewer: [email or web address] Jessica Aguilar Notice Issued Date-Time: 11/28/2018 12:45 Notice Type: Patient Choice Letter Notice Delivered To: Family Member Relationship to Patient: Spouse Mold Laminator Name: VILLA HARVEY Delivery Method: HAND - Hand Delivered Jyoti Days: Prior Verbal Notification: Recipient Understood Notice: Yes Recipient Signature: Yes Med Rec Note Co-signed by Attending: Coverage Notice Comment: [facility] Reviewer: [id number] - Helder [place] Notice Issued Date-Time: 12/07/2018 17:00 Notice Type: IM Discharge Notice Notice Delivered To: Patient Relationship to Patient: Mold Laminator Name: Delivery Method: HAND - Hand Delivered Jyoti Days: Prior Verbal Notification: Recipient Understood Notice: Yes Recipient Signature: Yes Med Rec Note Co-signed by Attending: Coverage Notice Comment: Last DP export: 12/07/18 4:18 p Patient Name: AFSHIN HARVEY Page 20775 at 0824 All edits/amendments must be made on the electronic document DICTATION DATE: 12/12/18822 ORNAMENTER HAND: DM 12/12/18822 RPT#: [id number] DC DATE:12/08/18 STATUS: DIS IN [facility] [address] [place] [address] END OF REPORT
== END 2018-12-08 13:00 | DRG 673 ==
LOC: D.ER 23:23 → D.M2 11-21 00:37 → D.ICU 11-21 00:37 → D.M2 11-26 16:49
PROVIDERS: Family Medicine; General Practice; Internal Medicine; Internal Medicine Hematology & Oncology; Internal Medicine Nephrology; Surgery; ADMIT Family Medicine
PROC: 0TB03ZX Excision of Right Kidney, Percutaneous Approach, Diagnostic (ICD-10-PCS; 2018-12-04)
PROC: 0JH63XZ Insertion of Tunneled Vascular Access Device into Chest Subcutaneous Tissue and Fascia, Percutaneous Approach (ICD-10-PCS; principal; 2018-12-06 11:00)
DX: N17.0 Acute kidney failure with tubular necrosis (principal); J18.9 Pneumonia, unspecified organism; G93.41 Metabolic encephalopathy; I50.33 Acute on chronic diastolic (congestive) heart failure; R40.2123 Coma scale, eyes open, to pain, at hospital admission; R40.2213 Coma scale, best verbal response, none, at hospital admission; E87.2 Acidosis; I38 Endocarditis, valve unspecified; E87.0 Hyperosmolality and hypernatremia; E78.5 Hyperlipidemia, unspecified; E11.9 Type 2 diabetes mellitus without complications; W19.XXXA Unspecified fall, initial encounter; E87.6 Hypokalemia; K21.9 Gastro-esophageal reflux disease without esophagitis; I25.10 Atherosclerotic heart disease of native coronary artery without angina pectoris; F17.200 Nicotine dependence, unspecified, uncomplicated; D50.9 Iron deficiency anemia, unspecified; I11.0 Hypertensive heart disease with heart failure; G72.89 Other specified myopathies; L27.0 Generalized skin eruption due to drugs and medicaments taken internally; T36.8X5A Adverse effect of other systemic antibiotics, initial encounter; R40.2353 Coma scale, best motor response, localizes pain, at hospital admission